=== PATIENT | female | born 1970 | race Caucasian/White ===

== ENCOUNTER → 2018-01-28 07:09 | Outpatient (CLI) | payer OTHER, SELFPAY ==
--- NOTE | 2018-01-28 07:15 | BI_ITS ---
MAMMOGRAPHY - BILATERAL SCREENING REASON FOR EXAM: Female, 47 years old. Routine annual screening examination. PERTINENT HISTORY: Non-contributory. TECHNIQUE: Digital bilateral breast tamar (3D mammographic acquisition) in the CC and MLO projections. 2-D mediolateral oblique (MLO) and craniocaudad (CC) views of both breasts were obtained. CAD: Full Field Digital Mammography with Computer Added Detection was performed. COMPARISON: Comparison is made with prior examination dated February 14, 2015. FINDINGS: Breast Composition: The breasts are heterogeneously dense, which may obscure small masses. There are no dominant masses or suspicious calcifications. No other significant abnormalities are identified. There has been no significant change since the prior study. BI/SCREENING MAMM (CAD), BILAT IMPRESSION: Stable bilateral screening mammogram. Yearly follow-up mammogram recommended. (A) ASSESSMENT CATEGORY: BIRADS Category 1: Negative. A letter regarding these results will be sent to the patient by the facility within 30 days. Approximately 10% of breast cancers are not detected by mammography. A normal mammogram should not delay biopsy of a clinically suspicious abnormality. [id number] Electronically Signed: Noe Maynard MD at 15:51 EDT Tel [phone], Service support ,
== END ==
PROVIDERS: Family Provider Nurse Practitioner Family; PCP Nurse Practitioner Family
DX: Z12.31 Encounter for screening mammogram for malignant neoplasm of breast (principal)
CPT/HCPCS: 77063; 77067

== ENCOUNTER → 2019-04-04 07:57 | Outpatient (CLI) | payer BC, SELFPAY ==
--- NOTE | 2019-04-04 07:59 | BI_ITS ---
MAMMOGRAPHY - BILATERAL SCREENING 3-D TOMOSYNTHESIS REASON FOR EXAM: Female, 48 years old. Bilateral Screening 3-D tomosynthesis PERTINENT HISTORY: No significant family history. TECHNIQUE: 2-D mammograms and 3-D Tomosynthesis of the breast (s) were performed. CAD was performed. COMPARISON: None. FINDINGS: The breast composition is heterogeneously dense that can obscure small breast masses. Scattered benign calcifications are seen. No dense spiculated masses or suspicious microcalcifications are identified. No architectural distortion is identified. There is no skin thickening or retraction. There has been no significant change since the prior study. BI/SCREEN MAMM (CAD) W/KWAME BILAT IMPRESSION: No mammographic signs of malignancy. Routine yearly mammograms recommended. ASSESSMENT CATEGORY: BIRADS Category 2: Benign. A letter regarding these results will be sent to the patient by the facility within 30 days. FOLLOW UP RECOMMENDATION: Yearly follow up mammogram recommended. (A) Approximately 10% of breast cancers are not detected by mammography. A normal mammogram should not delay biopsy of a clinically suspicious abnormality. Electronically Signed: Armin Kimball MD at 9:13 EDT , Service support ,
== END ==
DX: Z12.31 Encounter for screening mammogram for malignant neoplasm of breast (principal)
CPT/HCPCS: 77063; 77067

== ENCOUNTER → 2019-05-19 09:39 | Outpatient (CLI) | payer BC, SELFPAY ==
[2019-05-19 09:35] VITALS: BMI 38.2
[2019-05-19 10:15] LABS: Absolute Lymphocyte Count 2.64 X10^3/uL (0.83-4.51); Absolute Neutrophil Count 4.5 X10^3/uL (2.0-7.7); Basophil# 0.08 X10^3/uL; Eosinophil# 0.35 X10^3/uL; Eosinophils% 4.3 % (0-5); Hematocrit 38.2 % (37-47); Hemoglobin 12.2 g/dL (12.0-15.0); Lymphocyte # 2.64 X10^3/ul (4.0); Lymphocyte % 32.2 % (19-41); Mean Corp Hgb Conc 31.9 g/dL (32-36); Mean Corpuscular Hgb 27.4 pg (27.0-32.0); Mean Corpuscular Volume 85.8 fL (81-99); Mean Platelet Vol. 9.2 fl (6.2-12.0); Monocyte# 0.63 X10^3/uL; Monocyte% 7.7 % (0-10); NRBC Flagged by Analyzer 0 % (0-5); Neutrophil # 4.48 X10^3/uL (2.7-7.7); Neutrophil % 54.6 % (47-70); Platelet Count 357 K/mm3 (150-450); RBC Distribution Width CV 13.4 % (11.6-14.6); RBC Distribution Width SD 42.5 fl (35.1-43.9); Red Blood Count 4.45 M/mm3 (4.2-5.4); White Blood Count 8.2 K/mm3 (4.4-11.0)
[2019-05-19 10:36] LABS: Thyroid Stim Hormone (TSH) 3.25 uIU/mL (0.358-3.74)
== END ==
PROVIDERS: Referring Provider Obstetrics & Gynecology; Visit Provider Obstetrics & Gynecology
DX: N93.9 Abnormal uterine and vaginal bleeding, unspecified (principal)
CPT/HCPCS: 36415; 84443; 85025

== ENCOUNTER → 2019-05-31 08:40 | Outpatient (CLI) | payer BC, SELFPAY ==
[2019-05-19 09:35] VITALS: BMI 38.2
--- NOTE | 2019-05-31 08:42 | US_ITS ---
STUDY: ULTRASOUND OF THE FEMALE PELVIS - COMPLETE REASON FOR EXAM: Female, 49 years old. Dysfunctional uterine bleeding. LMP: April 25, 2019. TECHNIQUE: Transabdominal and Transvaginal TECHNICAL QUALITY: Adequate. COMPARISON: None. FINDINGS: The uterus is anteverted and is in a midline position. The uterus measures 15.5 x 8.1 x 7.8 cm. Normal uterine cervix. There is fluid within the endometrial canal. There is a large heterogenous hypoechoic mass which appears to form the posterior wall of the endometrial canal measuring 7.3 x 7.0 x 5.9 cm. There is internal vascularity This has an appearance of a mass within the endometrial cavity.. The anterior endometrial wall measures 2 mm in thickness, and is hyperechoic.. There is no demonstrated myometrial mass. I.U.D. - The patient does not have an I.U.D. The right ovary is visualized. The right ovary measures 3.1 x 2.6 x 2.2 cm. There is no right ovarian cyst or ovarian mass. There is no visualized right adnexal mass or complex lesion. There is normal arterial and normal venous vascularity. The left ovary is visualized. The left ovary measures 2.8 x 3.3 x 2.5 cm. There is no left ovarian cyst or ovarian mass. There is no visualized left adnexal mass or complex lesion. There is normal arterial and normal venous vascularity. There is no fluid in the cul-de-sac. The urinary bladder has a capacity of 181 mL. There is no gross abnormality. Polycystic ovary disease: No. US/Pelvic (Non ) IMPRESSION: 1. Large heterogenous mass within the endometrial cavity. There is minimal surrounding free fluid. Endometrial polyp or mass is considered. Less likely alternative is a large uterine fibroid deforming the endometrial canal. 2. Normal ovaries. Electronically Signed: Horace Alejo DO at 17:38 EDT Tel [phone], Service support ,
--- NOTE | 2019-05-31 09:15 | US_ITS ---
STUDY: ULTRASOUND OF THE FEMALE PELVIS - COMPLETE REASON FOR EXAM: Female, 49 years old. Dysfunctional uterine bleeding. LMP: April 25, 2019. TECHNIQUE: Transabdominal and Transvaginal TECHNICAL QUALITY: Adequate. COMPARISON: None. FINDINGS: The uterus is anteverted and is in a midline position. The uterus measures 15.5 x 8.1 x 7.8 cm. Normal uterine cervix. There is fluid within the endometrial canal. There is a large heterogenous hypoechoic mass which appears to form the posterior wall of the endometrial canal measuring 7.3 x 7.0 x 5.9 cm. There is internal vascularity This has an appearance of a mass within the endometrial cavity.. The anterior endometrial wall measures 2 mm in thickness, and is hyperechoic.. There is no demonstrated myometrial mass. I.U.D. - The patient does not have an I.U.D. The right ovary is visualized. The right ovary measures 3.1 x 2.6 x 2.2 cm. There is no right ovarian cyst or ovarian mass. There is no visualized right adnexal mass or complex lesion. There is normal arterial and normal venous vascularity. The left ovary is visualized. The left ovary measures 2.8 x 3.3 x 2.5 cm. There is no left ovarian cyst or ovarian mass. There is no visualized left adnexal mass or complex lesion. There is normal arterial and normal venous vascularity. There is no fluid in the cul-de-sac. The urinary bladder has a capacity of 181 mL. There is no gross abnormality. Polycystic ovary disease: No. US/Transvaginal Non- IMPRESSION: 1. Large heterogenous mass within the endometrial cavity. There is minimal surrounding free fluid. Endometrial polyp or mass is considered. Less likely alternative is a large uterine fibroid deforming the endometrial canal. 2. Normal ovaries. Electronically Signed: Horace Alejo DO at 17:38 EDT Tel [phone], Service support ,
== END ==
PROVIDERS: Referring Provider Obstetrics & Gynecology; Visit Provider Obstetrics & Gynecology
DX: N93.9 Abnormal uterine and vaginal bleeding, unspecified (principal)
CPT/HCPCS: 76830; 76856; 93976

== ENCOUNTER → 2019-06-12 17:19 | Outpatient (CLI) | payer BC, SELFPAY ==
--- NOTE | 2019-06-12 | EMB_PTH ---
PATIENT: GEORGIE ADKINS LOC: [facility] U#:[id number] AGE/SX: 55/F ROOM: RE06/12/[address]: PAOLA Delong : 1970 BED: DIS: SPEC #: [id number] RECD: 06/12/19 16:45 STATUS: ALISSON TUNDE #: [id number] ABELARDO: 06/12/19 00:[address]: Katie Espinoza NP DEPT: SURGICAL PATHOLOGY RECD BY: Nikos Irvin ENTERED: 06/13/19 08:51 SP TYPE: ENDOM BX/Beau ALMENDAREZ DR: Jessica [facility] Tissues: Endometrium, NOS Procedures: Surgery Specimen Level IV HEADER OPERATION: Endometrial biopsy PRE-OP DIAGNOSIS: Abnormal uterine bleeding TISSUE SUBMITTED: Endometrial biopsy MICROSCOPIC DIAGNOSIS Endometrial biopsy: Mildly disordered proliferative endometrium. Mild chronic endometritis. SJ:rhiannon 06/14/19 COMMENT Case has been reviewed in consultation with Dr. Contreras who concurs with the above diagnosis. IDC:AM MICROSCOPIC DESCRIPTION Slides are reviewed. GROSS DESCRIPTION Received is one container labeled with the patient's name and not further designated. The specimen consists of multiple irregular and elongated fragments of reddish-lyles soft tissue that in aggregate measure 3 x 2.2 x 0.2 cm. The specimen is totally submitted in one cassette. / AM:rhiannon 06/13/19 TC:5 CPT: 42423
[2019-06-12 16:01] VITALS: BMI 35.5
== END ==
PROVIDERS: Referring Provider Nurse Practitioner Women's Health; Visit Provider Nurse Practitioner Women's Health
DX: N71.1 Chronic inflammatory disease of uterus (principal)
CPT/HCPCS: 88305

== ENCOUNTER 2019-09-26 05:22 | Day surgery (SDC) | payer BC, SELFPAY ==
[2019-06-19 08:38] VITALS: BMI 35.5
[2019-09-18 11:30] VITALS: BMI 35.5
--- NOTE | 2019-09-25 10:29 | EKG12_ITS ---
Test Reason : PREOP Blood Pressure : / mmHG Vent. Rate : 073 BPM Atrial Rate : 073 BPM P-R Int : 146 ms QRS Dur : 074 ms QT Int : 410 ms P-R-T Axes : 050 017 059 degrees QTc Int : 451 ms Normal sinus rhythm Normal ECG Confirmed by ESPERANZA RODRIGUEZ, BREA ([id number]), order editor VALENTINO JACOBSEN ([id number]) on 09/26/2019 10:18:57 AM Referred By: Vicky Barajas Confirmed By:BREA MATA MD
--- NOTE | 2019-09-25 10:47 | PCM.HPOB.BLA ---
- Problem List (1) Abnormal Pap smear of cervix Status: Acute Qualifiers: Comment: colp planned, obtain pap record from [facility] (2) Abnormal uterine bleeding Status: Acute Comment: cbc tsh, us ordered. needs EMB. discussed options of ablation, patient to fu for further discussion based on workup results. (3) Uterine fibroid Status: Acute Qualifiers: Comment: recommend BALTAZAR DUBOSE, possible combo case with lauren juares. History and Physical Date of Admission: 09/26/19 Intake Vital Signs 09/18/19 BMI 35.5 09/18/19 Height 5 ft 7 in 09/18/19 Weight: 229 lb 6 oz 09/18/19 BMI 35.9 09/18/19 BP 133/83 H Intake Visit Reasons: ANAI JUARES COMBO Rubber Stamp Maker Required: No Is patient in pain?: No Allergies Penicillins Adverse Reaction (Mild, Verified 09/18/19 11:29) Rash Medications ferrous sulfate 325 mg (65 mg iron) tablet 325 mg PO QDAY tab 03/25/18 [History Confirmed 09/18/19] venlafaxine 75 mg capsule,extended release 24 hr 75 mg PO QDAY 03/25/18 [History Confirmed 09/18/19] ascorbic acid (vitamin C) 500 mg capsule mg PO cap 05/19/19 [History Confirmed 09/18/19] Post menopausal: No Patient : No : No [facility] Medical History Abnormal Pap smear of cervix (Acute) Anemia (Acute) Anxiety (Acute) Depression (Acute) Vitamin D deficiency (Acute) Surgical History Status post colposcopy (Acute) H/O tubal ligation (Inactive ~1997) Family History Mother Hypertension Kidney disease Sister Diabetes Social History (Updated 09/18/19 @ 11:43 by Vicky Barajas MD) adopted: No household members: family housing: house number of children: 3 current occupational status: employed current occupation: [employer] current occupational exposures/hazards: No pets and animals: No history of recent travel: No Smoking Status: Never smoker second hand exposure: No alcohol intake: current alcohol intake frequency: holidays/special occasions only substance use type: does not use what type of physical activity do you participate in: none seatbelt use: always do you feel safe at home: Yes additional social history: Boyfriend-Jm HPI ER[facility] BSO poss HERNANDO JUARES COMBO: Details: GEORGIE ADKINS is a 49 year old who presents for preop visit for [facility] bso. she is having a combo case with dr juares. Pregancy History 2 Elective abortions Hx Para 2 Spontaneous abortions Hx # Term Pregnancies Ectopic pregnancies Hx # Pregnancies Multiple births # of living children 2 Past Pregnancies Del. Date Name GA/Weeks Outcome Route Bth Weight Infant Gen Labor Lgth Anesthesia Del Locatn Provider FOB Unknown 1993- Vini Unknown 1996- Marilyn Unknown 2008- StepDght- Silvana ROS Const Constitutional: Denies fatigue, fever(s), headache(s), increased appetite, poor appetite, weight gain or weight loss ENT ENT: Denies dizziness or dry mouth Cardio Card: Denies chest pain Resp Resp: Denies cough or dyspnea GI GI: Reports as per HPI; denies abdominal pain, constipation, nausea or vomiting : Reports as per HPI; denies difficulty urinating, painful urination, blood in urine, nipple discharge, pelvic pain, urinary frequency, urinary incontinence, urinary hesitancy, urinary urgency, vaginal discharge, vaginal dryness, vaginal odor, vaginal itching or other Musc Musc: Denies joint pain, back pain or muscle weakness Skin Skin/Breast: Denies nipple discharge Neuro Neuro: Denies dizziness Psych Psych: Denies anxiety or depression Endo Endo: Denies cold intolerance, excessive sweating, heat intolerance or increased thirst Jose/Lymph Hematologic/Lymphatic: Denies easy bleeding, Denies easy bruising, Denies enlarged lymph nodes Exam Const General: cooperative, healthy appearing, comfortable, well developed Nutritional Appearance: average body habitus Orientation: alert HENMT Head: normal to inspection Neck Neck: normal visual inspection, trachea midline Thyroid: thyroid normal Resp Effort & Inspection: normal respiratory effort GI Inspection: normal to inspection, non-distended Palpation: soft, no hepatosplenomegaly, no guarding General: bladder normal to palpation External Female Exam: normal external appearance, normal appearance of the urethra Urethra: normal appearance of the urethra Speculum Exam - Vagina: normal appearance of the vagina, normal vaginal discharge, no lesions Speculum Exam - Cervix: normal appearance of the cervix, nontender Bimanual Exam- Vagina & Uterus: bladder normal to palpation, No cervical tenderness Bimanual Exam- Adnexa, other: normal adnexae, no adnexal masses, pelvic support normal Pelvic Support: normal Skin General: no rashes or lesions noted Assessment & Plan Problems 1. Uterine fibroid D25.9 recommend LAVH BSO, possible combo case with lauren juares HERNANDO. 2. Abnormal uterine bleeding N93.9 cbc tsh, us ordered. needs EMB. discussed options of ablation, patient to fu for further discussion based on workup results. Plan After discussing the patient's diagnosis and treatment plan options, patient wishes to proceed with surgical management. I have discussed with the patient the risks, benefits, and alternatives of the procedure which include but are not limited to risks of anesthesia, bleeding, infection, possible damage to bowel, bladder, or surrounding vasculature which could lead to additional surgery to evaluate any complications. Patient agrees to procedure and wishes to proceed. ACOG/uptodate references given for additional information regarding procedure. Coding Level of Care Code No Charge Diagnoses Uterine fibroid D25.9 Abnormal uterine bleeding N93.9 UPDATE- I have seen the patient and performed any clinically relevant updates to the history and physical exam. Vicky Barajas MD
[2019-09-25 11:16] LABS: Hematocrit 39.3 % (37-47); Hemoglobin 12.6 g/dL (12.0-15.0); Mean Corp Hgb Conc 32.1 g/dL (32-36); Mean Corpuscular Hgb 26.1 pg (27.0-32.0); Mean Corpuscular Volume 81.4 fL (81-99); Mean Platelet Vol. 9.7 fl (6.2-12.0); Platelet Count 438 K/mm3 (150-450); RBC Distribution Width CV 12.7 % (11.6-14.6); RBC Distribution Width SD 37.6 fl (35.1-43.9); Red Blood Count 4.83 M/mm3 (4.2-5.4); White Blood Count 10.4 K/mm3 (4.4-11.0)
[2019-09-25 12:03] LABS: ALB/GLOB Ratio 0.9 RATIO (0.9-2.4); AST(SGOT) 10 U/L (15-37); Alanine Aminotransfer ALT/SGPT 16 U/L (13-56); Albumin, Serum 3.5 g/dL (3.2-5.0); Alkaline Phosphatase 67 U/L (45-117); Anion Gap 4 (5-15); BUN 9 mg/dL (7-18); BUN/Creat Ratio 9.9 RATIO (10-20); Calcium,Total 8.8 mg/dL (8.5-10.1); Chloride 111 mmol/L (98-107); Creatinine, Serum 0.91 mg/dL (0.55-1.02); EST Glomerular Filtration Rate 70 mL/min (>60); Est Glom Filt Rate - Afr Amer 85 mL/min (>60); Globulin 3.7 g/dL (2.2-4.2); Glucose 85 mg/dL (74-106); Potassium 3.6 mmol/L (3.5-5.1); Protein, Total 7.2 g/dL (6.4-8.2); Sodium Level 141 mmol/L (136-145)
[2019-09-26] VITALS (15 sets, daily range): BP systolic 85–135; BP diastolic 55–89; PULSE 61–99; RESP 14–18; TEMP 36.1–37.2; O2SAT 93–100; BMI 35.3; BMI 30.2
[2019-09-26 06:10] LABS: Internal QC Validated? YES +Cl - CLEAR BKGD; Pregnancy, Urine Negative Negative
[2019-09-26 06:16] LABS: Bedside Glucose 113 mg/dL (70-110)
[2019-09-26] MEDS: Gabapentin 600 MG Tablet PO (06:17)
[2019-09-26] MEDS: Celecoxib 200 MG Capsule 400 MG PO (06:17)
[2019-09-26] MEDS: Acetaminophen 500 MG Tablet 1000 MG PO ×4 (06:17→23:44)
[2019-09-26] MEDS: dexAMETHasone 10 MG/ML Vial 8 MG IV (06:34)
[2019-09-26] MEDS: Scopolamine 1mg/72hr Patch 1 PATCH TRANSDERM. (06:34)
[2019-09-26] MEDS: Lactated Ringers 1,000 ML 40 ML IV (06:35)
[2019-09-26] MEDS: Magnesium Sulfate 4gm/100mL 4 GM/100 ML IV.SOLN. IV (06:36)
--- NOTE | 2019-09-26 07:30 | HYST_PTH ---
PATIENT: GEORGIE ADKINS [place] [facility] [id number] AGE/SX: 49/F ROOM: RE09/26/[address]: Dr. Vicky Barajas MD : 1970 BED: DIS: 09/27/2019 SPEC #: [id number] RECD: 09/26/19 10:14 STATUS: ALISSON TUNDE #: [id number] ABELARDO: 09/26/19 07:[address]: Vicky Barajas DEPT: SURGICAL PATHOLOGY RECD BY: Nikos Irvin ENTERED: 09/26/19 11:32 SP TYPE: HYSTERECT OTHR DR: MD Becky Gann, DITCHER OPERATOR-C [facility] Tissues: Uterus, NOS Procedures: Surgery Specimen Level V HEADER OPERATION: ERAS, hysterectomy, LAVH, bilateral salpingo-oophorectomy PRE-OP DIAGNOSIS: Uterine fibroid D25.9, Abnormal uterine bleeding N93.9 TISSUE SUBMITTED: Uterus, cervix, bilateral ovaries and fallopian tubes MICROSCOPIC DIAGNOSIS Uterus, cervix, bilateral fallopian tubes and ovaries, vaginal hysterectomy and bilateral salpingo-oophorectomy: Cervix - chronic cystic cervicitis. Endometrium - secretory endometrium. Myometrium - intramural to submucosal leiomyoma (6 cm in diameter). Bilateral fallopian tubes - no pathologic diagnosis. Right ovary - simple serous cyst (1.2 cm in greatest dimension). - Physiologic follicular cysts. Left ovary - Physiologic follicular cysts and corpus lutea. LUPE:rhiannon 09/27/18 COMMENT Please make reference to previous specimen ([id number]), endometrial biopsy with diagnosis of mildly disordered proliferative endometrium and mild chronic endometritis. MICROSCOPIC DESCRIPTION Slides are reviewed. GROSS DESCRIPTION Received in fixative is one container labeled with the patient's name and designated uterus, cervix, bilateral ovaries and fallopian tubes. The specimen consists of a hysterectomy specimen consisting of uterus with cervix and attached bilateral fallopian tubes and ovaries. The uterus with cervix weighs 362 gm and measures 15 x 10 x 8 cm. The serosal surface is lyles, glistening. The ectocervical mucosa is unremarkable. The external os is oval and patulous in contour. The endocervical canal measures 3.5 cm in length and the endocervical mucosa is unremarkable. Saucer-shaped endometrial cavity measures 6 cm in length and 5 cm in width. The endometrium is lyles, glistening and measures 0.1 cm in thickness. No mass lesion is identified. Sections of the uterine wall reveal an intramural to submucosal nodular mass measuring 6 cm in diameter. Sections of this mass reveals lyles whorled cut surfaces without areas of hemorrhage, necrosis or cystic degeneration. The uninvolved uterine wall measures up to 2 cm in thickness. The right fallopian tube measures 2 cm in length and 0.5 cm in diameter. The fimbrial end is identified. The proximal portion of the fallopian tube appears to be absent consistent with previous tubal ligation. The soft to cystic right ovary measures 3 x 2.5 x 2 cm. Sections reveal multiple cysts filled with clear fluid. The largest cyst measures 1.2 cm in greatest dimension. The left fallopian tube is similar to right and measures 1.5 cm in length and 0.5 cm in diameter. Sections reveal unremarkable cut surfaces. The soft to cystic left ovary measures 3 x 2.5 x 2 cm. Sections reveal multiple cysts filled with clear fluid. The largest cyst measures 0.5 cm in greatest dimension. A corpus luteum is also noted measuring 1 cm in greatest dimension. Hoisting Engineer Pile Driving sections are submitted in 12 cassettes as follows: 1 - anterior cervix, 2 - posterior cervix, 3 & 4 - anterior uterine wall (cassette 4 also contains a portion of nodular mass), 5 & 6 - posterior uterine wall, 7 & 8 - nodular mass, 9 - right fallopian tube, entirely submitted, 10??right ovary, 11 - left fallopian tube, entirely submitted and left ovary. / LUPE:rhiannon 09/26/19 TC:1 CPT: 85063
[2019-09-26] MEDS: Cefazolin 2 GM in 0.9% Normal Saline 100 ML IV (07:44)
--- NOTE | 2019-09-26 07:48 | PCM.OPRPT ---
Problem List (1) Abnormal Pap smear of cervix Status: Acute Qualifiers: Comment: colp planned, obtain pap record from [facility] (2) Abnormal uterine bleeding Status: Acute Comment: cbc tsh, us ordered. needs EMB. discussed options of ablation, patient to fu for further discussion based on workup results. (3) Uterine fibroid Status: Acute Qualifiers: Comment: recommend LAVH BSO, possible combo case with lauren higgins. Report of Operation Date of Procedure: 09/26/19 Pre-Operative Diagnosis: aub fibroids CHELE Post-Operative Diagnosis: same Surgery/Procedure Performed:: lavh bso Description of Surgical Findings:: enlarged uterus champion of sustainable design: Maria Esther Swift champion of sustainable design: Glendy Higgins Type of Anesthesia:: General Special Medications: none Specimen's removed: uterus tubes ovaries Drains: cain Estimated Blood Loss (mL): 100 Fluids Replaced: crystalloid Description of Procedure: Patient received preoperative antibiotics and SCDs were on preoperatively. Patient was taken back to the operating room and placed in the dorsal lithotomy position. General anesthesia was induced and patient was prepped and draped in normal sterile fashion. Uterine manipulator was placed inside the uterus and Cain catheter placed in the bladder. The umbilicus was grasped with towel clamps and an intraumbilical incision was made after injecting with quarter percent Marcaine and a Veress needle entered into the abdomen confirmed to be intra-abdominal with a low opening pressure. Abdomen was insufflated with CO2 gas and the Veress needle removed and the 5 mm trocar was placed under direct visualization without complication. Right and left lower quadrants were transilluminated and injected with quarter percent Marcaine and 5 mm ports placed under direct visualization. Pelvis was well visualized see operative findings for additional information. Bilateral fallopian tubes were identified and transected with the LigaSure device across the mesosalpinx to the level of the utero-ovarian ligament which was also transected with the LigaSure device. The broad ligament was opened up by transecting the round ligament bilaterally and skeletonizing the uterine vessels bilaterally and creating a bladder flap using the LigaSure device. The uterine arteries were transected bilaterally with good visualization of the bladder and the ureters were seen to be inferior lateral to the operative area. Attention was then paid to the vaginal portion of the procedure and the cervix was grasped with Sulaiman clamps and circumferentially injected with dilute vasopressin. A circumferential incision was made and the vaginal mucosa was mobilized off posteriorly and the cul-de-sac entered into sharply and a longneck speculum placed. The anterior cul-de-sac was then identified and entered into sharply. The uterosacral ligaments were clamped cut and suture ligated with 0 Monocryl bilaterally followed by the cardinal ligaments which were clamped cut and suture ligated bilaterally with 0 Monocryl. The uterus serially descended and was removed without difficulty Pelvic sidewall pedicles were checked and noted to have excellent hemostasis with an additional suture on the left side wall. The vaginal mucosa was reapproximated incorporating the posterior peritoneum. This was reapproximated using 0 Vicryl [id number] sutures. Excellent hemostasis was noted. Pressure was taken down and the areas visualized and noted of excellent hemostasis. All ports were removed under direct visualization without complication and the abdomen was desufflated of air. The instruments removed from the abdomen and the vagina vaginal sweep was negative. Port sites on the abdomen were closed with 4-0 Monocryl interrupted sutures and Steri's and windows were applied. dr higgins performed her portion of the procedure vaginally please see her dictation. She was awoken and taken recovery in stable condition. Grafts/Implants Used: sling - Complications none Multi Select Codes - Urinary/Genital Urinary/Genital CPT Codes: 66790 LAVH+BS/O >250gr Uterus
[2019-09-26] MEDS: Bupivacaine 0.25% 30 ML Vial (08:12)
[2019-09-26] MEDS: Vasopressin 20 UNITS/ML Vial (08:35)
--- NOTE | 2019-09-26 09:27 | OP.PCM_ITS ---
Problem List (1) Stress incontinence of urine Status: Acute Report of Operation Date of Procedure: 09/26/19 Pre-Operative Diagnosis: stress urinary incontinence, urethral hypermobility Post-Operative Diagnosis: same Surgery/Procedure Performed:: Altis midurethral sling, cystoscopy Type of Anesthesia:: General Estimated Blood Loss (mL): 25cc Description of Procedure: The patient is a 49-year-old female with stress urinary incontinence and urethral hypermobility along with a fibroid uterus. She desired to proceed with hysterectomy for her uterus, and mid urethral sling insertion for treatment of her incontinence. She underwent urodynamics in the office preoperatively and informed consent was obtained. Patient was taken to the operating room and placed on the operating room table. Anesthesia monitored the head, neck, airway, IV access and vital signs throughout the case. Once anesthesia was appropriately administered, the p atient was prepped and draped in usual sterile fashion. A Tijerina catheter was inserted under sterile conditions. She then underwent a laparoscopic assisted vaginal hysterectomy for which I assisted Dr. Barajas. At the conclusion of this portion of the procedure, I begin to work on the urethra. The mid urethra was identified and injected submucosally with vasopressin. A midline incision in vertical fashion was made approximately 1.5 cm in length. Sharp and blunt dissection was performed on either side of the urethra with care being taken to avoid entry into the urethra. Using the trochars of the sling, the mesh was placed into the obturator complexes bilaterally. It lay flat against the urethra without tension and was positioned using the tensioning suture which was then cut. The midline incision was closed using running interlocking 2-0 Vicryl suture. A cystourethroscopy was then performed revealing bilateral ureteral jets, no injury to the bladder or urethra mucosa and no foreign body. The Tijerina catheter was then replaced, and the patient was awakened and taken to the recovery room in good condition. Grafts/Implants Used: Altis midurethral sling - Complications none - Admit VTE Documentation VTE Present on Admission: Yes VTE Mechan Device Prophylaxis: SCD's VTE Pharm Prophylaxis ordered?: Yes
[2019-09-26] MEDS: Ketorolac 30 MG/ML Syringe IV ×3 (10:18→23:45)
[2019-09-26] MEDS: Docusate Sodium 100 MG Capsule PO ×2 (14:13→21:14)
[2019-09-26] MEDS: Smz/Tmp Ds Tablet 1 TABLET PO ×2 (14:13→17:05)
[2019-09-26] MEDS: Lactated Ringers 1,000 ML 70 ML IV (14:18)
[2019-09-27 02:35] VITALS: BP 109/69; PULSE 83; RESP 14; TEMP 37; O2SAT 95
[2019-09-27] MEDS: Ketorolac 30 MG/ML Syringe IV (05:16)
--- NOTE | 2019-09-27 06:14 | NURSING ---
Tijerina catheter removed at this time per order. Pt tolerated well.
[2019-09-27 06:23] LABS: Hematocrit 32.4 % (37-47); Hemoglobin 10.1 g/dL (12.0-15.0); Mean Corp Hgb Conc 31.2 g/dL (32-36); Mean Corpuscular Hgb 25.9 pg (27.0-32.0); Mean Corpuscular Volume 83.1 fL (81-99); Mean Platelet Vol. 9.2 fl (6.2-12.0); Platelet Count 366 K/mm3 (150-450); RBC Distribution Width CV 12.9 % (11.6-14.6); RBC Distribution Width SD 38.7 fl (35.1-43.9); White Blood Count 12.1 K/mm3 (4.4-11.0)
[2019-09-27 07:36] VITALS: O2SAT 94
--- NOTE | 2019-09-27 07:44 | PCM.PN.OB ---
Patient Problems: Active and Suspected Problems (Last Reviewed 09/18/19 @ 11:28 by Blanca Stevens) Stress incontinence of urine (Acute) Subjective: patient recovering well, denies CP, SOB, N, or V. patient is ambulating, voiding ,tolerating adequate po, and pain is controlled with oral medications. - Physical Exam Vitals/I&O's: Vital Signs Temp Pulse Resp BP Pulse Ox 98.6 F 83 14 109/69 94 09/27/19 02:35 09/27/19 02:35 09/27/19 02:35 09/27/19 02:35 09/27/19 07:36 Oxygen Flow Rate (L/min) 2 Oxygen Delivery Method Room Air Weight: 193 lb Body Mass Index (BMI) 30.2 Intake and Output for Last 24 Hours 09/25/19 09/26/19 09/27/19 23:59 23:59 23:59 Intake Total 2491.02 / 2491.02 1360 / 1360 Output Total 2140 / 2140 650 / 650 Balance 351.02 / 351.02 710 / 710 General: Alert, Oriented x3 Laboratory Results 09/27/19 06:10: WBC 12.1 H, RBC 3.90 L, Hgb 10.1 L, Hct 32.4 L, MCV 83.1, MCH 25.9 L, MCHC 31.2 L, RDW Std Deviation 38.7, RDW Coeff of Tim 12.9, Plt Count 366, MPV 9.2 Current Medications Acetaminophen (Tylenol) 1,000 mg PO Q6 [facility] Last Admin: 09/26/19 23:44 Dose: 1,000 mg Documented by: Docusate Sodium (Colace) 100 mg PO BID [facility] Last Admin: 09/26/19 21:14 Dose: 100 mg Documented by: Enoxaparin Sodium (Lovenox) 40 mg SC DAILY [facility] Lactated Ringer's () 1,000 mls @ 70 mls/hr IV .[id number] [facility] Stop: 09/27/19 10:04 Last Infusion: 09/27/19 04:36 Dose: Infused Documented by: Ketorolac Tromethamine (Toradol) 30 mg IV Q6 [facility] Stop: 09/27/19 18:01 Last Admin: 09/27/19 05:16 Dose: 30 mg Documented by: Magnesium Oxide (Mag-Ox 400) 400 mg PO DAILY PRN PRN PRN Reason: Constipation Nutritional Formula (Lactose Free) (Ensure Enlive) 120 ml PO TIDCM [facility] Ondansetron HCl (Zofran Odt) 4 mg PO Q6H PRN PRN PRN Reason: NAUSEA Oxycodone HCl (Oxyir) 5 - 10 mg PO Q4H PRN PRN PRN Reason: Pain Score 4-10/10 Sodium Chloride () 10 - 40 ml IV UD PRN PRN Reason: SALINE FLUSH Trimethoprim/Sulfamethoxazole (Bactrim Ds) 1 tablet PO BIDCM [facility] Last Admin: 09/26/19 17:05 Dose: 1 tablet Documented by: Medical Necessity - Tobacco Use Smoking Status: Never smoker Tobacco Use: Non-smoker Assessment/Plan All Active Problems (Last Reviewed 09/18/19 @ 11:28 by Blanca Stevens) Stress incontinence of urine (Acute) Uterine fibroid (Acute) Abnormal Pap smear of cervix (Acute) Abnormal uterine bleeding (Acute) patient is s/p LAVH BSO mini sling POD 1 1. routine ERAS protocol postop care- increase ambulation, encourage oral intake and oral control of pain. lovenox and scds for dvt prophylaxis, patient stable for discharge to home.
--- NOTE | 2019-09-27 07:56 | DCINST_ITS ---
Discharge Diet: No Restrictions Discharge Activity: Return to Normal Activity, May Not Drive, May Shower May resume sexual activity in: 6-8 weeks Call your doctor if your incision/area has: Continuous Slow Oozing, Sudden Increased Bleeding, Increased Pain/ Swelling, Increased Redness, Foul Smelling Discharge Call your doctor if you observe: Fever of 101 or Higher, Inability to urinate, Inability to have a bowel movement, Using more than one pad per hour Allergies/Adverse Reactions: Allergies Penicillins Adverse Reaction (Mild, Verified 09/19/19 10:12) Rash Medications to take at Discharge venlafaxine 75 mg capsule,extended release 24 hr 75 mg PO QDAY 03/25/18 Naproxen [Naprosyn] 250 - 500 mg PO Q8H PRN PRN #30 tab 09/26/19 Oxycodone HCl/Acetaminophen [Percocet 5-325] 1 - 2 tab PO Q6H PRN PRN 7 Days #15 tab 09/26/19 The following prescriptions were given: Naproxen [Naprosyn] 250 - 500 mg PO Q8H PRN PRN #30 tab PRN Reason: MILD PAIN Transmission Status: Received by [facility] Oxycodone HCl/Acetaminophen [Percocet 5-325] 1 - 2 tab PO Q6H PRN PRN 7 Days #15 tab PRN Reason: Pain Transmission Status: Received by [facility] Orders to be completed after discharge: Type & Screen Time Frame: 09/19/19, Facility: [facility], Location: Laboratory 12 Lead EKG [[facility]] Time Frame: 09/19/19, Facility: [facility], Location: Cardiovascular Services CBC-Complete Blood Cnt No Diff Time Frame: 09/19/19, Facility: [facility], Location: Laboratory Comprehensive Metabolic Profil Time Frame: 09/19/19, Facility: [facility], Location: Laboratory Primary Care Physician: Jessica Kearney [Primary Care Provider] - Test Results: Test results from this visit will be discussed in further detail at your follow- up appointment, if applicable. Please Follow Up With: Vicky Barajas MD - [phone]
[2019-09-27 09:02] VITALS: BP 118/68; PULSE 81; RESP 16; TEMP 36.7; O2SAT 97
[2019-09-27] MEDS: Docusate Sodium 100 MG Capsule PO (09:29)
[2019-09-27] MEDS: Acetaminophen 500 MG Tablet 1000 MG PO (09:30)
[2019-09-27] MEDS: Enoxaparin 40 MG/0.4 ML Syringe SC (09:30)
== END 2019-09-27 12:08 | disposition home or self-care (01) ==
LOC: SDC 05:23 → AC 05:24 → MS3 12:23
PROVIDERS: Urology; Referring Provider Obstetrics & Gynecology; Visit Provider Obstetrics & Gynecology
PROC: 0UT9FZZ Resection of Uterus, Via Natural or Artificial Opening With Percutaneous Endoscopic Assistance (ICD-10-PCS; CPT 58552; principal; 2019-09-26 07:05)
PROC: 0TJB8ZZ Inspection of Bladder, Via Natural or Artificial Opening Endoscopic (ICD-10-PCS; CPT 57288; 2019-09-26 07:05)
DX: N83.201 Unspecified ovarian cyst, right side (principal); D25.0 Submucous leiomyoma of uterus; N93.9 Abnormal uterine and vaginal bleeding, unspecified; N72 Inflammatory disease of cervix uteri; D25.9 Leiomyoma of uterus, unspecified; N39.3 Stress incontinence (female) (male); N85.2 Hypertrophy of uterus; Z79.1 Long term (current) use of non-steroidal anti-inflammatories (NSAID); Z79.899 Other long term (current) drug therapy; Z88.0 Allergy status to penicillin
CPT/HCPCS: 00860; 57288; 58552; 36415; 80053; 81025; 82962; 85027; 86850; 86900; 86901; 88307; 93005; 99251; J7120; G0463; J2405

== ENCOUNTER 2020-06-27 10:26 | Emergency (ER) | payer BC, SELFPAY ==
[2019-10-25 11:39] VITALS: BMI 30.2
[2020-06-27 10:28] VITALS: BP 147/88; PULSE 91; RESP 16; TEMP 36.6; O2SAT 98; BMI 36.1
--- NOTE | 2020-06-27 10:53 | EKG12_ITS ---
Test Reason : Blood Pressure : / mmHG Vent. Rate : 066 BPM Atrial Rate : 066 BPM P-R Int : 150 ms QRS Dur : 088 ms QT Int : 446 ms P-R-T Axes : 042 022 081 degrees QTc Int : 467 ms Normal sinus rhythm Normal ECG Confirmed by KSAANDRA RODRIGUEZ, JONE ([id number]), rewrite editor ALVERTO POTTER ([id number]) on 07/11/2020 9:30:09 A M Referred By: JULIA Confirmed By:MOISE SLAUGHTER MD
--- NOTE | 2020-06-27 10:54 | ED.DCSUM_ITS ---
- ER Visit Summary Date of Service: 06/27/20 Chief Complaint: Syncopal event History of Present Illness: The patient is a 50 F history of hypertension anxiety. Patient states for last several days she is had some nasal congestion and URI type symptoms. Today she took a shower. Tiff somewhat lightheaded d izziness shower when she got out she felt she might pass out so she sat down on the ground. Said she went out for a brief period of time. She did not fall because she felt it coming on so she lowered herself down. She denies any significant headache, chest pain, shortness of breath. She denies any nausea, vomiting or diarrhea. She denies any fever or chills. She has had a prior syncopal event before in which she was evaluated emergency department and discharged home and not admitted. She has no cardiac history or any history of dysrhythmia. Patient was started on blood pressure medications by the following [facility] clinic she was on lisinopril once daily. She did not like the way it made her feel so she stopped it about 2 weeks ago. Physical Examination: White female no acute distress vital signs stable afebrile. Blood pressure is 147/80. Afebrile. Pulse ox 98% on room air no signs hypoxia. Heart rate 91. H EENT exam unremarkable. Pupils are unreactive light. His motions are intact. No facial droop. Normal speech. No nystagmus. Neck nontender. Lungs clear to auscultation bilateral. Heart regular rhythm no murmur. Abdomen soft nontender normal bowel sounds no peritoneal signs. Patient is moving all 4 extremities. Neurovascular intact. Nontender no deformity. Normal range of motion. Back exam normal. Neurologically she is aw brain alert with no focal motor or sensory deficits. 5 out of 5 doctor of medicine strength bilaterally. Dorsi plantarflexion intact. Fingertip to nose within normal limits bilaterally. No signs of vertigo. Negative Hallpike. NIH score is 0. Face and scalp are atraumatic. Test Results: White count of 7. Hemoglobin 14. No bands. Chemistries normal normal creatinine and gap. EKG normal sinus rhythm rate of 66 no acute signs of [place], ischemia or dysrhythmia. Orthostatic vital signs were normal. No signs of any hypotension. Repeat exam patient is doing well at 12:27 PM. We went over her test results. They are comfortable being discharged home. Emergency Department Course and Treatment: Patient with a syncopal event. Currently has a completely normal exam. Normal neurologic exam. Screening labs, EKG and orthostatic vital signs are being obtained. Treatment Plan: Return if feeling worse or passes out again. Follow-up with primary care physician. Disposition: Discharge Impression: Acute syncopal event of uncertain etiology This note was generated with [employer] dictation software. It may contain incorrect words, spelling, and punctuation that were not noted in review of the chart prior to signing ED Disposition - Plan for ED Patient: Referrals: Becky Low ENTERPRISE SECURITY ARCHITECT, ENTERPRISE SECURITY ARCHITECT-C [Primary Care Provider] -
[2020-06-27 11:17] VITALS: BP 128/90; BP 132/82; BP 142/101; PULSE 71; PULSE 72; PULSE 85
[2020-06-27 11:33] LABS: Absolute Lymphocyte Count 1.46 X10^3/uL (0.83-4.51); Basophil# 0.05 X10^3/uL; Basophil% 0.7 % (0-1); Eosinophil# 0.25 X10^3/uL; Eosinophils% 3.4 % (0-5); Hematocrit 42.9 % (37-47); Hemoglobin 14.1 g/dL (12.0-15.0); Lymphocyte # 1.46 X10^3/ul (4.0); Lymphocyte % 20.1 % (19-41); Mean Corp Hgb Conc 32.9 g/dL (32-36); Mean Corpuscular Hgb 28.7 pg (27.0-32.0); Mean Corpuscular Volume 87.4 fL (81-99); Mean Platelet Vol. 9.4 fl (6.2-12.0); Monocyte# 0.48 X10^3/uL; Monocyte% 6.6 % (0-10); NRBC Flagged by Analyzer 0 % (0-5); Neutrophil # 4.99 X10^3/uL (2.7-7.7); Neutrophil % 68.9 % (47-70); Platelet Count 332 K/mm3 (150-450); RBC Distribution Width CV 12.4 % (11.6-14.6); RBC Distribution Width SD 39.5 fl (35.1-43.9); Red Blood Count 4.91 M/mm3 (4.2-5.4); White Blood Count 7.3 K/mm3 (4.4-11.0)
[2020-06-27 11:46] LABS: Anion Gap 5 (5-15); BUN 11 mg/dL (7-18); BUN/Creat Ratio 12.4 RATIO (10-20); Calcium,Total 9.2 mg/dL (8.5-10.1); Chloride 109 mmol/L (98-107); Creatinine, Serum 0.89 mg/dL (0.55-1.02); EST Glomerular Filtration Rate 72 mL/min (>60); Est Glom Filt Rate - Afr Amer 87 mL/min (>60); Estimated Creatinine Clearance 74.36 ml/min; Glucose 123 mg/dL (74-106); Potassium 3.5 mmol/L (3.5-5.1); Sodium Level 142 mmol/L (136-145)
--- NOTE | 2020-06-27 12:28 | ED.DEP ---
ED Disposition - Plan for ED Patient: Disposition: Home or Assisted Living Instructions: ED Fainting Uncertain Cause Referrals: Becky Low PRECISION OPTICS TECHNICIAN, PRECISION OPTICS TECHNICIAN-C [Primary Care Provider] - 3-5 Days Additional Instructions: Your blood counts, electrolytes, blood pressure and EKG were all normal. If you pass out again or feeling worse to return otherwise follow-up with your primary care provider for further evaluation.
[2020-06-27 12:51] VITALS: BP 140/95; PULSE 75; RESP 15; O2SAT 99
== END 2020-06-27 12:52 | disposition home or self-care (01) ==
PROVIDERS: Emergency Provider Emergency Medicine; PCP Nurse Practitioner Family
DX: R55 Syncope and collapse (principal); I10 Essential (primary) hypertension; F41.9 Anxiety disorder, unspecified; Z79.899 Other long term (current) drug therapy
CPT/HCPCS: 80048; 85025; 93005; 99281; 99285

== ENCOUNTER → 2020-12-25 06:59 | Outpatient (CLI) | payer OTHER, SELFPAY ==
--- NOTE | 2020-12-25 07:01 | BI_ITS ---
MAMMOGRAPHY - BILATERAL SCREENING REASON FOR EXAM: Female, 50 years old. Routine annual screening examination. PERTINENT HISTORY: Non-contributory. TECHNIQUE: Digital bilateral breast kwame (3D mammographic acquisition) in the CC and MLO projections. 2-D mediolateral oblique (MLO) and craniocaudad (CC) views of both breasts were obtained. CAD: Full Field Digital Mammography with Computer Added Detection was performed. COMPARISON: Comparison is made with prior study dated 04/04/2019 and 01/28/2018. FINDINGS: Breast Composition: The breasts are heterogeneously dense, which may obscure small masses. There are no dominant masses or suspicious calcifications. Stable small benign-appearing bilateral axillary lymph nodes. No other significant abnormalities are identified. There has been no significant change since the prior study. BI/SCRN MAMM (CAD)W/KWAME BILAT IMPRESSION: Stable bilateral screening mammogram. Yearly follow-up mammogram recommended. (A) ASSESSMENT CATEGORY: BIRADS Category 2: Benign. A letter regarding these results will be sent to the patient by the facility within 30 days. Approximately 10% of breast cancers are not detected by mammography. A normal mammogram should not delay biopsy of a clinically suspicious abnormality. [id number] Electronically Signed: Noe Maynard MD at 8:47 EDT , Service support ,
[2020-12-25 08:16] LABS: Absolute Lymphocyte Count 1.33 X10^3/uL (0.83-4.51); Absolute Neutrophil Count 6.5 X10^3/uL (2.0-7.7); Basophil# 0.06 X10^3/uL; Basophil% 0.7 % (0-1); Eosinophil# 0.32 X10^3/uL; Eosinophils% 3.6 % (0-5); Hematocrit 43.7 % (37-47); Hemoglobin 14.3 g/dL (12.0-15.0); Lymphocyte # 1.33 X10^3/ul (4.0); Lymphocyte % 15.2 % (19-41); Mean Corp Hgb Conc 32.7 g/dL (32-36); Mean Corpuscular Hgb 29.2 pg (27.0-32.0); Mean Corpuscular Volume 89.2 fL (81-99); Mean Platelet Vol. 9.8 fl (6.2-12.0); Monocyte# 0.53 X10^3/uL; NRBC Flagged by Analyzer 0 % (0-5); Neutrophil % 74.2 % (47-70); Platelet Count 313 K/mm3 (150-450); RBC Distribution Width CV 12.3 % (11.6-14.6); White Blood Count 8.8 K/mm3 (4.4-11.0)
[2020-12-25 08:39] LABS: AST(SGOT) 13 U/L (15-37); Alanine Aminotransfer ALT/SGPT 18 U/L (13-56); Albumin, Serum 3.6 g/dL (3.2-5.0); Alkaline Phosphatase 82 U/L (45-117); Anion Gap 1 (5-15); BUN 13 mg/dL (7-18); BUN/Creat Ratio 16.6 RATIO (10-20); Chloride 108 mmol/L (98-107); Cholesterol 169 mg/dL (200); Creatinine, Serum 0.78 mg/dL (0.55-1.02); EST Glomerular Filtration Rate 83 mL/min (>60); Est Glom Filt Rate - Afr Amer 101 mL/min (>60); Globulin 3.6 g/dL (2.2-4.2); Glucose 92 mg/dL (74-106); High Density Lipoprotein 48 mg/dL; Iron 95 ug/dL (50-170); Iron Binding Capacity,Total 312 ug/dL (250-450); PERCENT IRON SATURATION 30.4 % (15.0-55.0); Potassium 3.7 mmol/L (3.5-5.1); Protein, Total 7.2 g/dL (6.4-8.2); Sodium Level 141 mmol/L (136-145); Triglycerides 132 mg/dL; Very Low Density Lipoprotein 26 mg/dL (5-40)
== END ==
DX: Z12.31 Encounter for screening mammogram for malignant neoplasm of breast (principal); D50.9 Iron deficiency anemia, unspecified
CPT/HCPCS: 36415; 77063; 77067; 80053; 80061; 83540; 83550; 85025

== ENCOUNTER 2021-01-11 22:09 | Emergency (ER) | payer OTHER, SELFPAY ==
[2021-01-11 22:09] VITALS: BP 146/97; PULSE 71; RESP 16; TEMP 36.6; O2SAT 94; BMI 36.1
--- NOTE | 2021-01-11 22:43 | CT_ITS ---
STUDY: CT BRAIN WITH AND WITHOUT CONTRAST REASON FOR EXAM: Female, 50 years old. headache RADIATION DOSAGE (If Supplied By Facility): CTDIvol = ( 44.99 ) mGy, DLP = ( 1580.97 ) mGycm TECHNIQUE: Transaxial CT imaging of the brain was performed pre and post contrast administration. The examination was performed with intravenous administration of IV-50 ML ISOVUE 370. Individualized dose optimization techniques were used for this CT. COMPARISON: None. FINDINGS: Normal soft tissue structures. Normal calvarium. Normal size ventricles and extra-axial spaces for the patient''s age. Normal white matter tracts of the cerebral hemispheres. Normal basal ganglia and thalami. Normal brainstem. Normal cerebellum. There is no intracranial hemorrhage. There are no findings of an acute ischemic infarction. Normal visualized paranasal sinuses. CT/Brain/Head W/WO Contrast IMPRESSION: Normal unenhanced and enhanced CT scan of the brain. Electronically Signed: Dariana Barkley MD at 0:24 EDT , Service support ,
--- NOTE | 2021-01-11 22:47 | EDS_ITS ---
ED.HPI.CORNEJO History of Present Illness Chief Complaint: Headache Informant: patient and spouse/S.O. Onset/Context/Timing Onset: Weeks Context: Gradual Timing: Continuous Quality -Headache: Negative for Similar Prior Headaches Current Severity: Moderate Maximum Severity: Moderate Associated Symptoms/Injury Associated Symptoms: Positive for Nausea; Negative for Fever, Sore Throat and Sinus Pressure Narrative Narrative: 50-year-old female 2 weeks ago started developing a metallic taste that she thought was odd. About a week ago started having dizziness at times room spinning. Saw her primary care physician who put her on nausea medication and Antivert. States that she has had this headache now for 2 weeks. Nothing particular makes it better. She denies any falls or trauma. She is on no blood thinners. No one else at home is having headaches. She does not have a history of headaches. She denies any visual change, weakness of her upper or lower extremities or difficulty walking or talking. Prior similar symptoms: No Recent Illness/Hospitalization: No PFSH PFSH Medical History (Updated 01/12/21 @ 00:[address] Maykel Rosenberg MD) Abnormal Pap smear of cervix Anemia Anxiety Depression Migraines Vitamin D deficiency Home Medications venlafaxine 75 mg capsule,extended release 24 hr 75 mg PO QDAY 03/25/18 [History Last Taken 09/26/19 04:30 75 MG] Allergy/AdvReac Type Severity Reaction Status Date / Time Penicillins AdvReac Mild Rash Verified 01/11/21 22:11 Family History Mother Hypertension Kidney disease Sister Diabetes Surgical History H/O tubal ligation (~1997) History of LAVH Status post colposcopy Social History adopted: No household members: family housing: house number of children: 3 current occupational status: employed current occupation: [employer] current occupational exposures/hazards: No pets and animals: No history of recent travel: No Smoking Status: Never smoker second hand exposure: No alcohol intake: current alcohol intake frequency: holidays/special occasions only substance use type: does not use what type of physical activity do you participate in: none seatbelt use: always do you feel safe at home: Yes additional social history: Boyfriend-Jm ROS ROS ED Review of Systems ROS Unobtainable: Denies due to encephalopathy Constitutional Constitutional ED: Denies fever(s) Eyes Eyes: Denies blurry vision, change in vision or diplopia ENT ENT ED: Denies rhinorrhea or sore throat Cardiovascular Cardiovascular: Denies chest pain or palpitations Respiratory/Chest Respiratory/Chest: Denies cough or dyspnea Gastrointestinal Gastrointestinal: Denies abdominal pain Genitourinary Genitourinary ED: Denies dysuria Musculoskeletal Musculoskeletal: Denies myalgias Integumentary Denies rash Neurologic Neurologic: Reports headache(s); Denies paresthesias or weakness Psychiatric Psychiatric: Denies depression Endocrine Endocrinology: Denies polyuria Hematologic/Lymphatic Hematologic/Lymphatic: Denies easy bruising Allergic/Immunologic Allergic/Immunologic ED: Denies urticaria EXAM Physical Exam Narrative Exam Narrative: Well-appearing middle-aged female no acute distress. Vital signs stable afebrile. HEENT exam unremarkable. Pupils round reactive light. No facial droop. Normal speech. No signs of trauma. Neck nontender no meningismus. No lymphadenopathy. Lungs clear to auscultation bilaterally. Heart regular rhythm no murmur. Abdomen soft nontender. Extremities moving all 4. Neurovascular intact. Neurologic exam normal. NIH is 0. Equal symmetrical marketing strategy lead strength 5-5. Fingertip to nose within normal limits. Dorsi plantar flexion intact. No ataxia. Const Vital Signs: 01/11/21 22:09 Temperature 97.8 F Temperature Source Temporal Pulse Rate 71 Respiratory Rate 16 Blood Pressure 146/97 H Blood Pressure Mean 113 Pulse Ox 94 Oxygen Delivery Method Room Air Positive well nourished and well developed General Appearance ED: well developed HEENT Reports normocephalic and moist mucous membranes atraumatic; Negative for tenderness Eyes PERRL and EOMs intact bilaterally Neck no lymphadenopathy, supple, no meningeal signs and no JVD Resp normal respiratory effort and clear to auscultation bilaterally Cardio regular rate, regular rhythm and no murmurs GI non-tender and non-distended Auscultation: normoactive bowel sounds Palpation: soft Back/Spine no CVA tenderness Extremity normal to inspection, full ROM and normal capillary refill Neuro oriented x3 and CN's II-XII intact bilaterally Sensorium / Orientation: awake, alert and oriented to person Psych mental status grossly normal Skin Lesions: no lesions Rashes: no rashes MDM MDM MDM Narrative Medical decision making narrative: Middle-aged female with 2-week history of a headache. No trauma. Also symptoms of metallic taste, nausea and dizziness. Unremarkable exam but she does require imaging to further evaluate this complaint. She will be treated with IV Toradol, IV fluids, IV Benadryl and Reglan to try to improve the headache. Repeat exam at 12:18 AM patient is doing better after returning from CAT scan. Her exam remains normal. Her neurologic exam remains normal. She is improving after the IV medication. I went over her test results with her her CBC and chemistries were unremarkable. Lab Data Attestation: I reviewed the patient's lab results. Lab results narrative: CBC and chemistry were unremarkable. CAT scan of the brain with and without contrast was read as normal by the radiologist. I did review the studies. Repeat exam at 12:30 AM patient is doing well. We went over all of her test results. She will be discharged home to follow-up with her primary care provider. Labs: Laboratory Results - last 24 hr 01/11/21 01/11/21 23:20 23:20 WBC 10.3 RBC 5.03 Hgb 14.6 Hct 43.9 MCV 87.3 MCH 29.0 MCHC 33.3 RDW Std Deviation 39.8 RDW Coeff of Tim 12.6 Plt Count 336 MPV 9.5 Immature Gran % (Auto) 0.900 Neut % (Auto) 75.6 H Lymph % (Auto) 15.9 L [place] % (Auto) 5.1 Eos % (Auto) 1.9 Baso % (Auto) 0.6 Absolute Neuts (auto) 7.8 H Absolute Lymphs (auto) 1.63 Nucleated RBC % 0 Sodium 141 Potassium 3.5 Chloride 107 Carbon Dioxide 28.0 Anion Gap 6 BUN 17 Creatinine 0.85 Estim Creat Clear Calc 77.86 Est GFR (MDRD) Af Amer 92 Est GFR (MDRD) Non-Af 76 BUN/Creatinine Ratio 20.1 H Glucose 108 H Calcium 9.4 Radiography Diagnostic Testing: Radiology Impression Brain CT 01/11/21 22:43 IMPRESSION: Normal unenhanced and enhanced CT scan of the brain. Electronically Signed: Dariana Barkley MD at 0:24 EDT , Service support , Discharge Plan Triage Chief Complaint: Headache ED Provider: Maykel Rosenberg Dx/Rx/DC Orders Clinical Impression: Headache Instructions: ED Headache Unspecified Prescriptions: No Action venlafaxine [Effexor XR] 75 mg capsule,extended release 24hr 75 mg PO QDAY RF: 0 Primary Care Provider: [facility] Jessica Cordova Referrals: [facility] Jessica Cordova [Primary Care Provider] - 3-5 Days if not improving Activity Restrictions/Additional Instructions: Tylenol and/or Motrin for the headaches. If your symptoms are not improving follow-up with your primary care provider for further evaluation. Disposition Disposition: Home, self care
[2021-01-11] MEDS: Metoclopramide 10 MG/2 ML Vial 5 MG IV (23:13)
[2021-01-11] MEDS: 0.9% Normal Saline 1,000 ML 999 ML IV (23:13)
[2021-01-11] MEDS: DiphenhydrAMINE 50 MG/ML Syringe 25 MG IV (23:15)
[2021-01-11] MEDS: Ketorolac 30 MG/ML Syringe IV (23:16)
[2021-01-11 23:34] LABS: Absolute Lymphocyte Count 1.63 X10^3/uL (0.83-4.51); Absolute Neutrophil Count 7.8 X10^3/uL (2.0-7.7); Basophil# 0.06 X10^3/uL; Basophil% 0.6 % (0-1); Eosinophils% 1.9 % (0-5); Hematocrit 43.9 % (37-47); Hemoglobin 14.6 g/dL (12.0-15.0); Lymphocyte # 1.63 X10^3/ul (0.83-4.51); Lymphocyte % 15.9 % (19-41); Mean Corp Hgb Conc 33.3 g/dL (32-36); Mean Corpuscular Volume 87.3 fL (81-99); Mean Platelet Vol. 9.5 fl (6.2-12.0); Monocyte# 0.52 X10^3/uL; Monocyte% 5.1 % (0-10); NRBC Flagged by Analyzer 0 % (0-5); Neutrophil # 7.77 X10^3/uL (2.7-7.7); Neutrophil % 75.6 % (47-70); Platelet Count 336 K/mm3 (150-450); RBC Distribution Width CV 12.6 % (11.6-14.6); RBC Distribution Width SD 39.8 fl (35.1-43.9); Red Blood Count 5.03 M/mm3 (4.2-5.4); White Blood Count 10.3 K/mm3 (4.4-11.0)
[2021-01-11 23:44] LABS: Anion Gap 6 (5-15); BUN 17 mg/dL (7-18); BUN/Creat Ratio 20.1 RATIO (10-20); Calcium,Total 9.4 mg/dL (8.5-10.1); Chloride 107 mmol/L (98-107); Creatinine, Serum 0.85 mg/dL (0.55-1.02); EST Glomerular Filtration Rate 76 mL/min (>60); Est Glom Filt Rate - Afr Amer 92 mL/min (>60); Estimated Creatinine Clearance 77.86 ml/min; Glucose 108 mg/dL (74-106); Potassium 3.5 mmol/L (3.5-5.1); Sodium Level 141 mmol/L (136-145)
== END 2021-01-12 00:42 | disposition home or self-care (01) ==
PROVIDERS: Emergency Provider Emergency Medicine
DX: R51.9 Headache, unspecified (principal); R42 Dizziness and giddiness; F41.9 Anxiety disorder, unspecified; F32.9 Major depressive disorder, single episode, unspecified
CPT/HCPCS: 70470; 80048; 85025; 96361; 96374; 96375; 99282; J7030; Q9967; A4216

== ENCOUNTER 2021-01-13 15:03 | Emergency (ER) | payer OTHER, SELFPAY ==
[2021-01-13 15:04] VITALS: BP 154/90; PULSE 79; RESP 15; TEMP 36.4; O2SAT 97; BMI 35.2
--- NOTE | 2021-01-13 16:13 | EDS_ITS ---
HPI History of Present Illness Chief Complaint: Nausea/Vomiting Narrative Narrative: 50-year-old female presents with nausea, vomiting, dizziness, headache. She states the symptoms have been ongoing for the past 2 weeks. She was seen in the ED on Wednesday for similar complaints. At that time she had a CT of her head which was unremarkable. She followed up with ENT today. They sent her to the ER for IV fluids and Zofran. She states she continues to have vomiting and is unable to keep anything down. She denies abdominal pain. Denies diarrhea. Denies chest pain or shortness of breath. Denies fever or recent illness. Prior similar symptoms: Yes Recent Illness/Hospitalization: No PFSH PFSH Medical History (Updated 01/13/21 @ 18:[address] Mahogany Hay MD) Abnormal Pap smear of cervix Anemia Anxiety Depression Migraines Vitamin D deficiency Home Medications venlafaxine 75 mg capsule,extended release 24 hr 75 mg PO QDAY 03/25/18 [History Last Taken 09/26/19 04:30 75 MG] metoprolol succinate 50 mg PO DAILY 01/13/21 [History Last Taken Unknown] ondansetron 4 mg PO Q8H PRN PRN #10 tab 01/13/21 [Rx Last Taken Unknown] Allergy/AdvReac Type Severity Reaction Status Date / Time Penicillins AdvReac Mild Rash Verified 01/13/21 15:05 Family History Mother Hypertension Kidney disease Sister Diabetes Surgical History (Updated 01/13/21 @ 15:07 by Mercedez Holder) H/O tubal ligation (~1997) H/O: hysterectomy History of [facility] Status post colposcopy Social History adopted: No household members: family housing: house number of children: 3 current occupational status: employed current occupation: [employer] current occupational exposures/hazards: No pets and animals: No history of recent travel: No Smoking Status: Never smoker second hand exposure: No alcohol intake: current alcohol intake frequency: holidays/special occasions only substance use type: does not use what type of physical activity do you participate in: none seatbelt use: always do you feel safe at home: Yes additional social history: Boyfriend-Jm ROS ROS ED Constitutional Constitutional ED: Denies fever(s) Eyes Eyes: Denies change in vision ENT ENT ED: Denies rhinorrhea or sore throat Cardiovascular Cardiovascular: Denies chest pain or palpitations Respiratory/Chest Respiratory/Chest: Denies cough or dyspnea Gastrointestinal Gastrointestinal: Reports nausea and vomiting; Denies abdominal pain, constipation or diarrhea Genitourinary Genitourinary ED: Denies dysuria Musculoskeletal Musculoskeletal: Denies myalgias Integumentary Denies rash Neurologic Neurologic: Reports headache(s); Denies weakness Psychiatric Psychiatric: Denies suicidal thoughts EXAM Physical Exam Const Vital Signs: 01/13/21 15:04 01/13/21 17:03 01/13/21 17:13 Temperature 97.5 F L Temperature Source Temporal Pulse Rate 79 Pulse Rate [Lying] 75 Pulse Rate [Sitting] 75 Pulse Rate [Standing] 81 Respiratory Rate 15 15 Blood Pressure 154/90 H Blood Pressure [Lying] 138/85 H Blood Pressure [Sitting] 155/86 H Blood Pressure [Standing] 144/97 H Blood Pressure Mean 111 Blood Pressure Mean [Lying] 102 Blood Pressure Mean [Sitting] 109 Blood Pressure Mean [Standing] 112 Pulse Ox 97 98 Oxygen Delivery Method Room Air Room Air Positive well nourished and well developed General Appearance ED: well developed HEENT Reports normocephalic and head/scalp atraumatic Eyes PERRL and EOMs intact bilaterally Neck supple Neck Narrative: No meningismus General: Negative for tenderness Chest Wall inspection of chest normal Resp normal respiratory effort and clear to auscultation bilaterally Cardio regular rate and regular rhythm GI non-tender and non-distended Palpation: soft; Negative for guarding or rebound tenderness present no CVA tenderness Extremity normal to inspection Neuro oriented x3 and CN's II-XII intact bilaterally Sensorium / Orientation: alert Psych mental status grossly normal Skin no rashes or lesions noted MDM MDM MDM Narrative Medical decision making narrative: Patient was given IV fluids, Zofran. Lab Data Attestation: I reviewed the patient's lab results. Labs: Laboratory Results - last 24 hr 01/13/21 01/13/21 01/13/21 16:45 16:45 17:25 WBC 10.6 RBC 5.20 Hgb 15.1 H Hct 45.5 MCV 87.5 MCH 29.0 MCHC 33.2 RDW Std Deviation 39.8 RDW Coeff of Tim 12.4 Plt Count 363 MPV 9.3 Immature Gran % (Auto) 0.400 Neut % (Auto) 85.1 H Lymph % (Auto) 9.5 L Frio % (Auto) 4.2 Eos % (Auto) 0.2 Baso % (Auto) 0.6 Absolute Neuts (auto) 9.0 H Absolute Lymphs (auto) 1.00 Nucleated RBC % 0 Sodium 141 Potassium 3.4 L Chloride 105 Carbon Dioxide 28.0 Anion Gap 8 BUN 14 Creatinine 0.81 Estim Creat Clear Calc 81.70 Est GFR (MDRD) Af Amer 97 Est GFR (MDRD) Non-Af 80 BUN/Creatinine Ratio 17.3 Glucose 101 Calcium 9.8 Total Bilirubin 0.50 AST 9 L ALT 22 Alkaline Phosphatase 94 Troponin I < 0.015 Total Protein 8.5 H Albumin 4.3 Globulin 4.2 Albumin/Globulin Ratio 1.0 Lipase 73 Urine Color Yellow Urine Clarity Clear Urine pH 5.0 Ur Specific [place] 1.025 Urine Protein 30 H Urine Glucose (UA) Normal Urine Ketones 150 A* Urine Occult Blood 25 H Urine Nitrite Negative Urine Bilirubin Negative Urine Urobilinogen Normal Ur Leukocyte Esterase Negative Urine RBC 0-5 SEEN Urine WBC 0 SEEN Ur Squamous Epith Cells 0-5 SEEN Urine Bacteria 0 SEEN Urine Mucus 1+ Microbiology Past 72 Hours 01/13/21 16:50 Nasal Secretion SARS-CoV-2 Antigen (Rapid) - Final Laboratory Results 01/13/21 16:45: WBC 10.6, RBC 5.20, Hgb 15.1 H, Hct 45.5, MCV 87.5, MCH 29.0, MCHC 33.2, RDW Std Deviation 39.8, RDW Coeff of Tim 12.4, Plt Count 363, MPV 9.3, Immature Gran % (Auto) 0.400, Neut % (Auto) 85.1 H, Lymph % (Auto) 9.5 L, Frio % (Auto) 4.2, Eos % (Auto) 0.2, Baso % (Auto) 0.6, Absolute Neuts (auto) 9.0 H, Absolute Lymphs (auto) 1.00, Nucleated RBC % 0 01/13/21 16:45: Sodium 141, Potassium 3.4 L, Chloride 105, Carbon Dioxide 28.0, Anion Gap 8, BUN 14, Creatinine 0.81, Estim Creat Clear Calc 81.70, Est GFR (MDRD) Af Amer 97, Est GFR (MDRD) Non-Af 80, BUN/Creatinine Ratio 17.3, Glucose 101, Calcium 9.8, Total Bilirubin 0.50, AST 9 L, ALT 22, Alkaline Phosphatase 94, Troponin I < 0.015, Total Protein 8.5 H, Albumin 4.3, Globulin 4.2, Albumin/Globulin Ratio 1.0, Lipase 73 01/13/21 17:25: Urine Color Yellow, Urine Clarity Clear, Urine pH 5.0, Ur Specific [place] 1.025, Urine Protein 30 H, Urine Glucose (UA) Normal, Urine Ketones 150 A*, Urine Occult Blood 25 H, Urine Nitrite Negative, Urine Bilirubin Negative, Urine Urobilinogen Normal, Ur Leukocyte Esterase Negative, Urine RBC 0-5 SEEN, Urine WBC 0 SEEN, Ur Squamous Epith Cells 0-5 SEEN, Urine Bacteria 0 SEEN, Urine Mucus 1+ EKG Initial EKG: Attestation: I personally reviewed and interpreted this EKG as follows: Interpretation: Sinus Rhythm and No Acute Injury Pattern Comments: Rate of 80 Treatment and Re-Evaluation Comments:: Patient was given IV fluids and Zofran. Valium was called in to her pharmacy by Dr. Moser earlier today. On reevaluation, she is feeling improved. She is able to tolerate p.o. in the emergency department. She is comfortable with discharge home. She is advised to follow-up with her primary care physician. Advised return to the ED for worsening complaints. Discharge Plan Triage Chief Complaint: Nausea/Vomiting ED Provider: Mahogany Hay Dx/Rx/DC Orders Clinical Impression: Vertigo Instructions: ED Vertigo, Unspecified Prescriptions: New ondansetron [ondansetron] 4 MG tablet 4 mg PO Q8H PRN PRN (Reason: Nausea) Qty: 10 RF: 0 No Action venlafaxine [Effexor XR] 75 mg capsule,extended release 24hr 75 mg PO QDAY RF: 0 metoprolol succinate 50 mg tablet extended release 24 hr 50 mg PO DAILY RF: 0 [facility] - Disposition Disposition: Home, self care
--- NOTE | 2021-01-13 16:22 | EKG12_ITS ---
Test Reason : Blood Pressure : / mmHG Vent. Rate : 080 BPM Atrial Rate : 080 BPM P-R Int : 162 ms QRS Dur : 076 ms QT Int : 410 ms P-R-T Axes : 044 027 058 degrees QTc Int : 472 ms Normal sinus rhythm Normal ECG Confirmed by WILLOW RODRIGUEZ, DESTINEY ([id number]), editor index ALVERTO POTTER ([id number]) on 01/15/2021 9:03:45 AM Referred By: JACQUELINE Confirmed By:DESTINEY DAUGHERTY MD
[2021-01-13] MEDS: Ondansetron 4 MG/2 ML Vial IV (16:53)
[2021-01-13] MEDS: 0.9% Normal Saline 1,000 ML 1000 ML IV (16:53)
[2021-01-13 17:02] LABS: Basophil# 0.06 X10^3/uL; Basophil% 0.6 % (0-1); Eosinophil# 0.02 X10^3/uL; Eosinophils% 0.2 % (0-5); Hematocrit 45.5 % (37-47); Hemoglobin 15.1 g/dL (12.0-15.0); Lymphocyte % 9.5 % (19-41); Mean Corp Hgb Conc 33.2 g/dL (32-36); Mean Corpuscular Volume 87.5 fL (81-99); Mean Platelet Vol. 9.3 fl (6.2-12.0); Monocyte# 0.44 X10^3/uL; Monocyte% 4.2 % (0-10); NRBC Flagged by Analyzer 0 % (0-5); Neutrophil # 9.01 X10^3/uL (2.7-7.7); Neutrophil % 85.1 % (47-70); Platelet Count 363 K/mm3 (150-450); RBC Distribution Width CV 12.4 % (11.6-14.6); RBC Distribution Width SD 39.8 fl (35.1-43.9); White Blood Count 10.6 K/mm3 (4.4-11.0)
[2021-01-13 17:03] VITALS: RESP 15; O2SAT 98
[2021-01-13 17:13] VITALS: BP 138/85; BP 144/97; BP 155/86; PULSE 75; PULSE 81
[2021-01-13 17:22] LABS: AST(SGOT) 9 U/L (15-37); Alanine Aminotransfer ALT/SGPT 22 U/L (13-56); Albumin, Serum 4.3 g/dL (3.2-5.0); Alkaline Phosphatase 94 U/L (45-117); Anion Gap 8 (5-15); BUN 14 mg/dL (7-18); BUN/Creat Ratio 17.3 RATIO (10-20); Calcium,Total 9.8 mg/dL (8.5-10.1); Chloride 105 mmol/L (98-107); Creatinine, Serum 0.81 mg/dL (0.55-1.02); EST Glomerular Filtration Rate 80 mL/min (>60); Est Glom Filt Rate - Afr Amer 97 mL/min (>60); Globulin 4.2 g/dL (2.2-4.2); Glucose 101 mg/dL (74-106); Lipase 73 U/L (73-393); Potassium 3.4 mmol/L (3.5-5.1); Protein, Total 8.5 g/dL (6.4-8.2); Sodium Level 141 mmol/L (136-145)
[2021-01-13 17:31] LABS: Bacteria 0 SEEN /hpf (None Seen); White Blood Cells 0 SEEN /hpf (0-5)
[2021-01-13 17:52] LABS: Color, Urine Yellow (Yellow); Glucose, Dipstick Normal (Normal); Leukocyte Esterase-Dipstick Negative /ul (Negative); Nitrite-Dipstick Negative (Negative); Occult Blood-Urine 25 /ul (Negative); Protein-Dipstick 30 mg/dl (Negative); Specific Gravity, Urine 1.025 (1.002-1.030); Urine Bilirubin Dipstick Negative (Negative); Urine Clarity Clear (Clear); Urine Urobilinogen Normal (Normal)
[2021-01-13 17:55] LABS: Ketone-Dipstick 150 mg/dl (Negative)
[2021-01-13 18:00] LABS: Mucous, Urine 1+ /hpf (<or=2+); Red Blood Cells-Urine 0-5 SEEN /hpf (0-5); Squamous Epithelial Cells - UA 0-5 SEEN /hpf (5-10)
== END 2021-01-13 19:00 | disposition home or self-care (01) ==
PROVIDERS: Emergency Provider Emergency Medicine
DX: R11.2 Nausea with vomiting, unspecified (principal); R42 Dizziness and giddiness; D64.9 Anemia, unspecified; E55.9 Vitamin D deficiency, unspecified; F32.9 Major depressive disorder, single episode, unspecified; F41.9 Anxiety disorder, unspecified; G43.909 Migraine, unspecified, not intractable, without status migrainosus; Z79.899 Other long term (current) drug therapy
CPT/HCPCS: 80053; 81001; 83690; 84484; 85025; 87426; 93005; 96361; 96374; 99284; J7030; A4216; J2405

== ENCOUNTER → 2021-01-27 16:53 | Outpatient (CLI) | payer OTHER, SELFPAY ==
[2021-01-13 15:04] VITALS: BMI 35.2
[2021-01-27 17:41] LABS: Creatinine, Serum 0.79 mg/dL (0.55-1.02); EST Glomerular Filtration Rate 82 mL/min (>60); Est Glom Filt Rate - Afr Amer 99 mL/min (>60); T4 Free Direct 0.75 ng/dL (0.76-1.46); Thyroid Stim Hormone (TSH) 2.58 uIU/mL (0.358-3.74)
[2021-01-30 16:54] LABS: Acetylcholine Receptor Binding < 0.03 nmol/L (0.00-0.24)
== END ==
PROVIDERS: Referring Provider Ophthalmology; Visit Provider Ophthalmology
DX: H49.23 Sixth [abducent] nerve palsy, bilateral (principal); R51.9 Headache, unspecified
CPT/HCPCS: 36415; 82565; 84238; 84439; 84443

== ENCOUNTER → 2021-01-31 17:37 | Outpatient (CLI) | payer OTHER, SELFPAY ==
[2021-01-13 15:04] VITALS: BMI 35.2
--- NOTE | 2021-01-31 17:53 | MRI_ITS ---
HISTORY: 6TH NERVE PALSY EXAMINATION: MR Brain WO/W Contrast TECHNIQUE: Multiplanar and multisequence MR images of the brain were obtained with and without IV gadolinium. IV Contrast dosage and agent: 20cc dotarem COMPARISON: None FINDINGS: BRAIN PARENCHYMA: No MRI evidence of hemorrhage. No evidence of acute infarct. No intracranial mass or mass effect. No abnormal enhancement. Scattered, nonspecific small high T2 signal foci in the periventricular white matter. There is preservation of the emdond/white matter interface. Normal sella turcica, pituitary gland, infundibular stalk, optic chiasm and hypothalamus. The internal auditory canals are patent. Posterior fossa structures are unremarkable. CSF SPACES: Appropriate for age. No hydrocephalus. Basal cisterns are patent. VASCULAR SYSTEM: Normal flow voids in the major intracranial circulation. CALVARIUM, SKULL BASE, PARANASAL SINUSES AND MASTOID AIR CELLS: Clear. No discrete lytic or blastic abnormalities. ORBITS: Both globes, extraocular muscles, optic nerves and retrobulbar fat appear unremarkable. MRI/Brain W/WO Contrast IMPRESSION: No acute intracranial findings. No mass lesion or abnormal focal enhancement. at 2147 Reported and signed by: Morgan Dial MD Electronically Signed: Morgan Dial MD at 21:46 EDT Tel , Service support ,
== END ==
PROVIDERS: Referring Provider Ophthalmology; Visit Provider Ophthalmology
DX: H49.23 Sixth [abducent] nerve palsy, bilateral (principal); R51.9 Headache, unspecified
CPT/HCPCS: 70553; A9575

== ENCOUNTER → 2021-03-04 15:55 | Outpatient (CLI) | payer OTHER, SELFPAY ==
[2021-03-05 09:13] LABS: PTHIN 52.1 pg/mL (18.4-80.1)
[2021-03-06 14:16] LABS: Thyroid Peroxidase AB 267 IU/mL (0-34)
== END ==
PROVIDERS: PCP Nurse Practitioner Adult Health; Referring Provider Nurse Practitioner Adult Health; Visit Provider Nurse Practitioner Adult Health
DX: R43.2 Parageusia (principal)
CPT/HCPCS: 36415; 83655; 83970; 86376

== ENCOUNTER → 2021-03-14 15:49 | Outpatient (CLI) | payer OTHER, SELFPAY ==
[2021-03-14 17:37] LABS: Hematocrit 39.4 % (37-47); Hemoglobin 12.8 g/dL (12.0-15.0); Mean Corp Hgb Conc 32.5 g/dL (32-36); Mean Corpuscular Hgb 28.4 pg (27.0-32.0); Mean Corpuscular Volume 87.6 fL (81-99); Mean Platelet Vol. 10.4 fl (6.2-12.0); Platelet Count 303 K/mm3 (150-450); RBC Distribution Width CV 12.4 % (11.6-14.6); RBC Distribution Width SD 39.8 fl (35.1-43.9); White Blood Count 8.1 K/mm3 (4.4-11.0)
[2021-03-14 17:47] LABS: ALB/GLOB Ratio 1.1 RATIO (0.9-2.4); AST(SGOT) 16 U/L (15-37); Alanine Aminotransfer ALT/SGPT 21 U/L (13-56); Albumin, Serum 3.6 g/dL (3.2-5.0); Alkaline Phosphatase 78 U/L (45-117); Anion Gap 9 (5-15); BUN 20 mg/dL (7-18); BUN/Creat Ratio 23.9 RATIO (10-20); Chloride 107 mmol/L (98-107); Creatinine, Serum 0.84 mg/dL (0.55-1.02); EST Glomerular Filtration Rate 77 mL/min (>60); Est Glom Filt Rate - Afr Amer 93 mL/min (>60); Globulin 3.4 g/dL (2.2-4.2); Glucose 84 mg/dL (74-106); Potassium 3.7 mmol/L (3.5-5.1); Sodium Level 140 mmol/L (136-145)
[2021-03-21 20:08] LABS: HEPATITIS B SURFACE AG Negative (Negative); Hepatitis A AB, Total Negative (Negative); Hepatitis A IgM Antibody Negative (Negative); Hepatitis B Core AB IgM Negative (Negative); Hepatitis B Core Ab Total Negative (Negative); Hepatitis C Ab <0.1 s/co ratio (0.0-0.9); Immunoglobulin A 244 mg/dL (87-352); Immunoglobulin G 895 mg/dL (586-1602); Immunoglobulin M 172 mg/dL (26-217); QNTFERON TB Mitogen Value > 10.00 IU/mL (.); QNTFERON TB Nil Value 0 IU/mL (.); QNTFERON TB1+ Ag Value 0 IU/mL (.); QNTFERON TB2+ Ag Value 0 IU/mL (.)
[2021-03-21 20:34] LABS: Hep B Surface Antibodies Non Reactive (.); Immunoglobulin E 16 IU/mL (6-495); QNTIFERON TB Positive Criteria Negative (Negative)
== END ==
PROVIDERS: Visit Provider Psychiatry & Neurology Neurology
DX: H81.10 Benign paroxysmal vertigo, unspecified ear (principal); G35 Multiple sclerosis
CPT/HCPCS: 36415; 80053; 82784; 82785; 85027; 86480; 86704; 86705; 86706; 86708; 86709; 86803; 87340

== ENCOUNTER → 2022-05-04 | Outpatient (CLI) | payer BC, SELFPAY ==
--- NOTE | 2022-05-04 07:11 | BI_ITS ---
MAMMOGRAPHY - BILATERAL SCREENING REASON FOR EXAM: Female, 52 years old. Routine annual screening examination. PERTINENT HISTORY: Non-contributory. TECHNIQUE: Digital bilateral breast kwame (3D mammographic acquisition) in the CC and MLO projections. 2-D mediolateral oblique (MLO) and craniocaudad (CC) views of both breasts were obtained. CAD: Full Field Digital Mammography with Computer Added Detection was performed. COMPARISON: Comparison is made with prior study dated 12/25/2020 and 04/04/2019. FINDINGS: Breast Composition: The breasts are heterogeneously dense, which may obscure small masses. There are no dominant masses or suspicious calcifications. Stable small benign-appearing bilateral axillary lymph nodes. No other significant abnormalities are identified. There has been no significant change since the prior study. BI/SCRN MAMM (CAD)W/KWAME BILAT IMPRESSION: Stable bilateral screening mammogram. Yearly follow-up mammogram recommended. (A) ASSESSMENT CATEGORY: BIRADS Category 2: Benign. A letter regarding these results will be sent to the patient by the facility within 30 days. Approximately 10% of breast cancers are not detected by mammography. A normal mammogram should not delay biopsy of a clinically suspicious abnormality. [id number] Electronically Signed: Noe Maynard MD at 8:38 EDT ,
--- NOTE | 2022-05-04 07:59 | RAD_ITS ---
STUDY: X-RAY - LEFT FOOT CLINICAL: Pain at the plantar aspect of the distal metatarsal area. TECHNIQUE: 2 view(s) of the foot. COMPARISON: None. FINDINGS: There are posterior and plantar calcaneal enthesophytes. Otherwise, unremarkable talus, calcaneus, and tarsal bones. Normal visualized subtalar, talonavicular, calcaneocuboid, tarsal and tarsometatarsal articulations. Normal metatarsi. Normal metatarsophalangeal joint of the great toe. Normal tibial and fibular sesamoid bones. Normal interphalangeal joint of the great toe. Normal phalanges of the great toe. Normal second through fifth metatarsophalangeal joints. There is mild flexion deformity of the second distal interphalangeal joint. Otherwise, unremarkable interphalangeal joints and phalanges of the lesser toes. The soft tissue structures are unremarkable. RAD/Foot 2 Views IMPRESSION: Calcaneal enthesopathy. Mild flexion deformity of the second distal interphalangeal joint. Electronically Signed: Ck Portillo MD at 8:41 EDT ,
[2022-05-04 08:04] LABS: Absolute Lymphocyte Count 1.57 X10^3/uL (0.83-4.51); Absolute Neutrophil Count 4.7 X10^3/uL (2.0-7.7); Basophil# 0.08 X10^3/uL; Basophil% 1.1 % (0-1); Eosinophil# 0.33 X10^3/uL; Eosinophils% 4.5 % (0-5); Hematocrit 42.4 % (37-47); Hemoglobin 14.6 g/dL (12.0-15.0); Lymphocyte # 1.57 X10^3/ul (0.83-4.51); Lymphocyte % 21.5 % (19-41); Mean Corp Hgb Conc 34.4 g/dL (32-36); Mean Corpuscular Hgb 29.9 pg (27.0-32.0); Mean Corpuscular Volume 86.9 fL (81-99); Mean Platelet Vol. 9.5 fl (6.2-12.0); Monocyte# 0.59 X10^3/uL; Monocyte% 8.1 % (0-10); NRBC Flagged by Analyzer 0 % (0-5); Neutrophil # 4.71 X10^3/uL (2.7-7.7); Neutrophil % 64.7 % (47-70); Platelet Count 334 K/mm3 (150-450); RBC Distribution Width CV 12.5 % (11.6-14.6); RBC Distribution Width SD 39.7 fl (35.1-43.9); Red Blood Count 4.88 M/mm3 (4.2-5.4); White Blood Count 7.3 K/mm3 (4.4-11.0)
[2022-05-04 08:51] LABS: ALB/GLOB Ratio 0.9 RATIO (0.9-2.4); AST(SGOT) 15 U/L (15-37); Alanine Aminotransfer ALT/SGPT 22 U/L (13-56); Albumin, Serum 3.5 g/dL (3.2-5.0); Alkaline Phosphatase 80 U/L (45-117); Anion Gap 6 (5-15); BUN 17 mg/dL (7-18); BUN/Creat Ratio 18.7 RATIO (10-20); Calcium,Total 8.6 mg/dL (8.5-10.1); Chloride 106 mmol/L (98-107); Cholesterol 180 mg/dL (200); Creatinine, Serum 0.91 mg/dL (0.55-1.02); EST Glomerular Filtration Rate 69 mL/min (>60); Est Glom Filt Rate - Afr Amer 84 mL/min (>60); Globulin 3.7 g/dL (2.2-4.2); Glucose 97 mg/dL (74-106); High Density Lipoprotein 49 mg/dL; Potassium 3.6 mmol/L (3.5-5.1); Protein, Total 7.2 g/dL (6.4-8.2); Sodium Level 140 mmol/L (136-145); Thyroid Stim Hormone (TSH) 3.43 uIU/mL (0.358-3.74); Triglycerides 93 mg/dL; Very Low Density Lipoprotein 19 mg/dL (5-40)
== END | disposition home or self-care (01) ==
DX: Z12.31 Encounter for screening mammogram for malignant neoplasm of breast (principal); M79.672 Pain in left foot; I10 Essential (primary) hypertension
CPT/HCPCS: 36415; 73620; 77063; 77067; 80053; 80061; 84443; 85025

== ENCOUNTER → 2023-06-18 | Outpatient (CLI) | payer BC, SELFPAY ==
--- NOTE | 2023-06-18 07:38 | BI_ITS ---
MAMMOGRAPHY - BILATERAL SCREENING REASON FOR EXAM: Female, 53 years old. Routine annual screening examination. PERTINENT HISTORY: Non-contributory. TECHNIQUE: Digital bilateral breast kwame (3D mammographic acquisition) in the CC and MLO projections. 2-D mediolateral oblique (MLO) and craniocaudad (CC) views of both breasts were obtained. CAD: Full Field Digital Mammography with Computer Added Detection was performed. COMPARISON: Comparison is made with prior study May 04, 2022 and December 25, 2020. FINDINGS: Breast Composition: There are scattered areas of fibroglandular density. There are no dominant masses or suspicious calcifications. No other significant abnormalities are identified. There has been no significant change since the prior study. BI/SCRN MAMM (CAD)W/KWAME BILAT IMPRESSION: Stable bilateral screening mammogram. Yearly follow-up mammogram recommended. (A) ASSESSMENT CATEGORY: BIRADS Category 1: Negative. A letter regarding these results will be sent to the patient by the facility within 30 days. Approximately 10% of breast cancers are not detected by mammography. A normal mammogram should not delay biopsy of a clinically suspicious abnormality. [id number] Electronically Signed: Noe Maynard MD at 9:33 EDT ,
== END | disposition home or self-care (01) ==
PROVIDERS: Referring Provider Nurse Practitioner Adult Health; Visit Provider Nurse Practitioner Adult Health
DX: Z12.31 Encounter for screening mammogram for malignant neoplasm of breast (principal)
CPT/HCPCS: 77063; 77067

== ENCOUNTER → 2023-10-02 | Outpatient (CLI) | payer BC, SELFPAY ==
--- OUTSIDE RECORDS SUMMARY | 2023-10-02 11:02 | XMS RPT_ITS | CCD ---
Author Name Unknown Address [address] [place] [address] Organization [facility] Care Team Providers Care Teacher Associate Name Role Phone Becky Low Primary Care Provider [phone] Unknown, Unknown Unavailable Unavailable Unavailable Unavailable Ms. Mani Ponce Attending Unav lesley Ponce, Ms. Mani Victor Referring Unav ailable UNKNOWN, UNKNOWN Primary Care Unavailable Ms. Mani Ponce Attending Unav ailable Fanta, Dr. Oglesby Referring Unavailabl e UNKNOWN, UNKNOWN Primary Care [place] [id number], Number Primary Care Provide r Unavailable MANI PONCE Attending Unavailable Allergies Allergy Classification Reported Allergen(s) Allergy Type Date of Onset Reaction(s) Facility (2 sources) Penicillins; Translations: [PENICILLINS] Propensity to adverse reactions to drug 7 [facility] (15 sources) Penicillins; Translations: [Penicillins] Allergy to drug (finding) [facility] [address] Work Phone: (1 source) Penicillins Drug Intolerance 7 Unknown [facility] (1 source) ALLERGIES NOT ON FILE; Translations: [ALLERGIES NOT ON FILE] Propensity to adverse reactions (disorder) [facility] Repository Medications Current Medications Medication Drug Class(es) Dates Sig (Normalized) Sig (Original) 0.4 ml ofatumumab 50 mg/ml pen injector (15 sources) [id number] Cytolytic Antibody ofatumumab (Kesimpta Pen) 20 mg/0.4 mL injection INJECT 1 PEN (20 MG) SC ONCE ON WEEKS 0, 1, AND 2. NO INJECTION WEEK 3. THEN INJECT 1 PEN (20MG) SC ONCE EVERY 4 WEEKS STARTING ON WEEK 4 0 Active Completed/Discontinued Medications Medication Drug Class(es) Dates Sig (Normalized) Sig (Original) cyclobenzaprine hydrochloride 10 mg oral tablet (2 sources) Muscle Relaxant Start: 08-05-2019 End: 07-19-2023 take 1 tablet by mouth three times daily as needed for muscle spasms cyclobenzaprine (Flexeril) 10 mg tablet Take 1 tablet (10 mg) by mouth 3 times a day as needed for muscle spasms. 0 08/05/2019 07/19/2023 Discontinued (Therapy completed) ferrous sulfate 325 mg oral tablet (2 sources) End: 07-19-2023 take 1 tablet by mouth three times daily at mealtime ferrous sulfate 325 (65 Fe) MG tablet Take 1 tablet (325 mg) by mouth 3 times a day with meals. 0 07/19/2023 Discontinued (Therapy completed) meclizine hydrochloride 25 mg oral tablet (2 sources) Antiemetic Start: 08-05-2019 End: 07-19-2023 take 1 tablet by mouth three times daily as needed meclizine (Antivert) 25 mg tablet Take 1 tablet (25 mg) by mouth 3 times a day as needed. 0 08/05/2019 07/19/2023 Discontinued (Therapy completed) 24 hr metoprolol succinate 50 mg extended release oral tablet (16 sources) beta-Adrenergic Kael Start: 05-16-2021 take 1 tablet by mouth every twenty-four hours Metoprolol Succinate ER 50 MG Oral Tablet Extended Release 24 Hour Quantity: 90 Refills: 0 Ordered: 05-Jul-2021 DO Start : 16-May-2021 Active Problems Active Problems Problem Classification Problem Date Documented Da te Episodic/Chronic Essential hypertension (16 sources) Hypertensive disorder; Translations: [Unspecified essential hypertension] Onset: 07-18-2023 07-18-2023 Chronic Mood disorders (16 sources) Depressive disorder; Translations: [Depressive disorder, not elsewhere classified] Onset: 07-18-2023 07-18-2023 Chronic Multiple sclerosis (20 sources) Multiple sclerosis; Translations: [Multiple sclerosis] Onset: 01-12-2023 Chronic Past or Other Problems Problem Classification Problem Date Documented Da te Episodic/Chronic Other screening for suspected conditions (not mental disorders or infectious disease) (1 source) Abnormal findings on diagnostic imaging of skull and head, not elsewhere classified; Translations: [Abnormal findings on dx imaging of skull and head, NEC] Onset: 03-23-2023 Episodic Sprains and strains (1 source) Strain of neck muscle; Translations: [Strain of neck muscle, initial encounter] Episodic Results Test Name Value Interpretation Reference Range Facil ity Vital Signs Date Time Vital Sign Value Performing Clinician Facility 07-19-2023 14:40-0500 Body mass index (BMI) [Ratio] 37.43 kg/m2 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 [employer] Work Phone: [facility] 07-19-2023 14:40-0500 Body weight 108.41 kg 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 [employer] Work Phone: [facility] 07-19-2023 14:40-0500 Diastolic blood pressure 77 mm[Hg] 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 [employer]UNDRY Work Phone: [facility] 07-19-2023 14:40-0500 Heart rate 67 /min 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 [employer]DR[employer] Work Phone: [facility] 07-19-2023 14:40-0500 Respiratory rate 18 /min 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 [employer] Work Phone: [facility] 07-19-2023 14:40-0500 Systolic blood pressure 120 mm[Hg] 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 [employer]UNDRY Work Phone: [facility] 01-12-2023 14:05-0400 Body height 170.18 cm Unknown Unknown BW-Hfltigrui-ZFN [facility] [place] [address] Work Phone: 01-12-2023 14:05-0400 Body mass index (BMI) [Ratio] 36.96 kg/m2 Unknown Unknown [facility] [place] [address] Work Phone: 01-12-2023 14:05-0400 Body surface area Derived from formula 2.17 m2 [facility] 01-12-2023 14:05-0400 Body weight 107.05 kg Unknown Unknown FH-Ewccbztlc-DMA [facility] [place] [address] Work Phone: 01-12-2023 14:05-0400 Diastolic blood pressure 80 mm[Hg] Unknown Unknown RV-Tvjwgmnot-YDWGN [place] [facility] Work Phone: 01-12-2023 14:05-0400 Heart rate 69 /min Unknown Unknown MM-Akouhxzjp-DOA [facility] [place] [facility] Work Phone: 01-12-2023 14:05-0400 Respiratory rate 18 /min Unknown Unknown AQ-Enyqyfovu-VD [facility] Work Phone: 01-12-2023 14:05-0400 Systolic blood pressure 129 mm[Hg] Unknown Unknown [facility] Work Phone: 01-12-2023 14:05-0400 1 1 Unknown Unknown JV-Arfqpueql-DPY [facility] [place] [facility] Work Phone: Encounters Encounter Date Encounter Type Care Provider Facility Start: 07-19-2023 End: 07-20-2023 ambulatory [facility] Start: 07-19-2023 End: 07-19-2023 ambulatory MANI [facility] Start: 07-19-2023 End: 07-19-2023 Office outpatient visit 40 minutes 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 LAUNDRY Work Phone: [facility] Procedures Date Procedure Procedure Detail Performing Clinician Start: 07-19-2023 CBC W Auto Different ial panel - Blood MANI PONCE Start: 07-19-2023 Hepatic function 200 0 panel - Serum or Plasma MANI PONCE Start: 12-15-2022 Microscopic observat ion [Identifier] in Cervix by Cyto stain 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 [employer] Work Phone: Start: 08-05-2019 Radiography of cervi michelle spine Cassandra Ventura Work Phone: Plan of Treatment Date Care Activity Detail Author Start: 12-15-2025 Screening for malignant neoplasm of cervix [facility] Start: 01-17-2024 End: 01-17-2024 Patient encounter procedure 01/17/2024 2:45 PM EDT Office Visit [facility] [address] [place] [id number] Mani Ponce, SLITTER 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 HELPER-SUPERVISOR LAUNDRY [address] [place] [address] [facility] Start: 07-22-2023 FUV, Provider: Mani Ponce, Status: Pen, Time: 2:30 PM FUV, Provider: Mani Ponce, Status: Pen, Time: 2:30 PM GT-Fwjxgkjjh-WNNZZ [place] [facility] Work Phone: Start: 07-19-2023 End: 07-19-2024 CBC W Auto Differential panel - Blood CBC and Auto Differential Lab Routine Multiple sclerosis (CMS/HCC) Expected: 07/19/2023 (Approximate), Expires: 07/19/2024 [facility] Service Area Work Phone: Payers Date Payer Category Payer Unknown 2021 Unknown [id number] 2019 Unknown [employer] O PPO POS xxxxxxxxxxxx 2019-Present xxxxxxxxxxxx [id number] 1971 Unknown [id number] 1971 Unknown [id number] 1971 Unknown [id number] 5 1971 Unknown [id number] 1971 Unknown [id number] Social History Date Type Detail Facility Start: 08-05-2019 End: 07-19-2023 Tobacco smoking status NHIS Never smoker [facility] Start: 08-05-2019 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 Current non-smoker Current non-smoker [facility] [address] Work Phone: Start: 07-19-2023 Tobacco use and exposure Smokeless tobacco non-user [facility] Work Phone: Gender identity Not on file [facility] ospitals [facility] Work Phone: Start: 07-09-2023 End: 07-19-2023 Exposure to SARS-CoV-2 (event) Not sure [facility] History of Present illness Narrative 07-19-2023 ARY Schofield - 07/19/2023 2:45 PM EST Note Date & Type Note Facility 07-19-2023 History of Present illness Narrative Patient name: Georgie pacheco Diagnosis if known: RRMS Date of onset: 11/2020 Date of diagnosis: 08/2021 disease course at onset: RR disease course now: RR Current DMT: IVMP Previous DMTs: Kesimpta Last MRI brain: 03/2023- stable Last MRI cervical: 09/2021- C3-4 lesion. Last MRI thoracic: None Last OCT: CSF: None Subjective Georgie Ramos is a 53 y.o. female here for a follow up of er MS, she takes Kesimpta and tolerating well. She reports having headaches but not frequently, she also reports zaps of electricity in her neck when she rotates it and also in different areas of her brain that comes and goes . Last MRI of the brain 03/2023 was stable. HPI Objective Neurological Exam Mental Status Alert. Oriented to person, place, time and situation. Oriented to person, place, and time. Recent and remote memory are intact. Speech is normal. Language is fluent with no aphasia. Attention and concentration are normal. Cranial Nerves CN II: Visual acuity is normal. CN III, IV, : Extraocular movements intact bilaterally. Normal lids and orbits bilaterally. Pupils equal round and reactive to light bilaterally. Motor Normal muscle bulk throughout. Normal muscle tone. Strength is 5/5 throughout all four extremities. 9 hole peg test: Right hand 23.4 sec. Left hand 26.7 sec.. Sensory Sensation is intact to light touch, pinprick, vibration and proprioception in all four extremities. Reflexes Deep tendon reflexes are 2+ and symmetric in all four extremities. Right palmar grasp present. Left palmar grasp present. Coordination Fpzobu-lw-mtvx, rapid alternating movements and xaft-pk-bmdn normal bilaterally without dysmetria. Gait Timed get up and go test: 6 seconds. Physical Exam Constitutional: Appearance: Normal appearance. HENT: Head: Normocephalic. Nose: Nose normal. Mouth/Throat: Mouth: Mucous membranes are moist. Eyes: General: Lids are normal. Extraocular Movements: Extraocular movements intact. Pupils: Pupils are equal, round, and reactive to light. Cardiovascular: Rate and Rhythm: Normal rate. Pulses: Normal pulses. Pulmonary: Effort: Pulmonary effort is normal. Abdominal: General: Abdomen is flat. Musculoskeletal: General: Normal range of motion. Cervical back: Full passive range of motion without pain and normal range of motion. Skin: General: Skin is warm and dry. Neurological: Mental Status: She is alert and oriented to person, place, and time. Motor: Motor strength is normal. Coordination: Coordination is intact. Deep Tendon Reflexes: Reflexes are normal and symmetric. Psychiatric: Attention and Perception: Attention normal. Mood and Affect: Mood normal. Speech: Speech normal. Behavior: Behavior normal. Behavior is cooperative. Thought Content: Thought content normal. Cognition and Memory: Cognition normal. Judgment: Judgment normal. Provider impression: Georgie Ramos is a 53 y.o. female here for a follow up of er MS, she takes Kesimpta and tolerating well. Last MRI of the brain 03/2023 was stable. Her neurological exam is stable. We discussed the importance of living healthy life style with diet and exercise and the importance of V-D in patient's with MS. The total face to face appointment was 45 minutes and more than 50% of the visit was spent counseling and coordination of care. I personally reviewed laboratory, radiographic, and medical studies which were pertinent for today's visit. Plan - Continue Kesimpta. - MRI March 2024. - Labs today. - Follow up 6 mo. documented in this encounter [facility] Work Phone: History of Present illness Narrative 12-01-2022 Note Date & Type Note Facility 12-01-2022 History of Present illness Narrative [facility] NEUROIMMUNOLOGY EVALUATIONReferral source: Dr. Lino NEUROLOGIC DIAGNOSIS: RMSDISEASE SUMMARY/DIAGNOSTICS:Onset: 12/01Diagnosis of MS: 09/02Disease course at onset: RCurrent disease course: RPrevious disease therapies: not sure, maybe one dose of IVMP, on prednisone for a couple of weeks in 01/31Current disease therapies: Kesimpta startedSep 2021Most recent MRI brain: 04/03 vs 04/02, stable Moderate MRI typical of MSMost recent MRI cervical spine: 10/04, C3-4 lesionMost recent MRI thoracic spine: noneCSF: noneHistory summary:52 yo white female RH here for a follow up of her MS, she is on Kesimpta and tolerating well. She reports no new MS symptoms, but has headaches at least 3 times a week. She states she does not want to start medication for headaches at this time she has been able to manage. Last MRI of the brain 03/2022 and stable.Sometimes when sitting and she moves her head from side to side she can hear her neck pop, no electrical shocks. probably not related to her MS but she wanted to mention. PQ-Smudixisp-DLXUF [place] [address] Work Phone: History of Present illness Narrative 12-01-2021 Note Date & Type Note Facility 12-01-2021 History of Present illness Narrative [facility] NEUROIMMUNOLOGY EVALUATIONReferral source: Dr. Lino NEUROLOGIC DIAGNOSIS: RMSDISEASE SUMMARY/DIAGNOSTICS:Onset: 12/01Diagnosis of MS: 09/02Disease course at onset: RCurrent disease course: RPrevious disease therapies: not sure, maybe one dose of IVMP, on prednisone for a couple of weeks in 01/31Current disease therapies: Kesimpta startedSep 2021Most recent MRI brain: 01/31, I reviewed the images: Moderate MRI typical of MS-MRI brain demonstrated scattered ovoid T2 hyperintense lesions in the periventricular white matter, centrum semiovale, and in the posterior fossa (left MCP enhancing lesion). There were 1 gadolinium enhancing lesions.Most recent MRI cervical spine: noneMost recent MRI thoracic spine: noneCSF: noneHistory summary:12/01 had a metallic taste in her mouth constant, then developed constant vertigo, not positional, for weeks (could not work although she tried). Had some CORNEJO with the vomiting, had 2 migraines in her life. Also noticed diplopia while watching TV. Eventually sought care, had brain MRI as above. Saw Marciano, back in February 2021, thought she had MS, medications were discussed. Ocrevus was denied by insurance, JCV pos reportedly for Tysamargarethi, also denied Vumerity.On bad days she can have tension CORNEJO in the back of the head, like pressure, can be 8/10, NSAIDS help a bit, 3 days in a row last week but different than her prior episodes typical of migraines. Some residual dizziness but no vertigo. She is back to work.Interval Hx:She is feeling better, less CORNEJO and dizziness. [facility] [address] Work Phone: Chief complaint Narrative - Reported Note Date & Type Note Facility Chief complaint Narrative - Reported f/u for MSNeurologic Evaluation. BD-Saidodclz-HQFKE [place] [facility] Work Phone: Evaluation note Note Date & Type Note Facility documented in this encounter [facility] Work Phone: History of Present illness Narrative Note Date & Type Note Facility History of Present illness Narrative [facility] NEUROIMMUNOLOGY EVALUATIONReferral source: Dr. GormanPRINCIPAL NEUROLOGIC DIAGNOSIS: RMSDISEASE SUMMARY/DIAGNOSTICS:Onset: 12/01Diagnosis of MS: 09/02Disease course at onset: RCurrent disease course: RPrevious disease therapies: not sure, maybe one dose of IVMP, on prednisone for a couple of weeks in 01/31Current disease therapies: noneMost recent MRI brain: 01/31, I reviewed the images: Moderate MRI typical of MS-MRI brain demonstrated scattered ovoid T2 hyperintense lesions in the periventricular white matter, centrum semiovale, and in the posterior fossa (left MCP enhancing lesion). There were 1 gadolinium enhancing lesions.Most recent MRI cervical spine: noneMost recent MRI thoracic spine: noneCSF: noneHPI:Consultation on this 51 year old R-handed woman was requested regarding ?MS. The patient was accompanied by her partner. Previous imaging studies were reviewed and summarized.History summary:12/01 had a metallic taste in her mouth constant, then developed constant vertigo, not positional, for weeks (could not work although she tried). Had some CORNEJO with the vomiting, had 2 migraines in her life. Also noticed diplopia while watching TV. Eventually sought care, had brain MRI as above. Saw Marciano, back in January/February 2021, thought she had MS, medications were discussed. Ocrevus was denied by insurance, JCV pos reportedly for Tysabri, also denied Vumerity.On bad days she can have tension CORNEJO in the back of the head, like pressure, can be 8/10, NSAIDS help a bit, 3 days in a row last week but different than her prior episodes typical of migraines. Some residual dizziness but no vertigo. She is back to work.Current symptoms:-as above-trouble with memory-paresthesias in her whole left leg sometimes when turning her neck to the leftThe patient denies visual loss, diplopia, bulbar symptoms, weakness, spasticity, difficulty with gait, bladder and bowel symptoms, Lhermittes phenomenon. [facility] [address] Work Phone: History of Present illness Narrative Note Date & Type Note Facility History of Present illness Narrative [facility] NEUROIMMUNOLOGY EVALUATIONReferral source: Dr. GormanPRINCIPAL NEUROLOGIC DIAGNOSIS: RMSDISEASE SUMMARY/DIAGNOSTICS:Onset: 12/01Diagnosis of MS: 09/02Disease course at onset: RCurrent disease course: RPrevious disease therapies: not sure, maybe one dose of IVMP, on prednisone for a couple of weeks in 01/31Current disease therapies: Kesimpta startedJan 2021Most recent MRI brain: 04/03 vs 04/02, stable Moderate MRI typical of MSMost recent MRI cervical spine: 10/04, C3-4 lesionMost recent MRI thoracic spine: noneCSF: noneHistory summary:12/01 had a metallic taste in her mouth constant, then developed constant vertigo, not positional, for weeks (could not work although she tried). Had some CORNEJO with the vomiting, had 2 migraines in her life. Also noticed diplopia while watching TV. Eventually sought care, had brain MRI as above. Saw Marciano, back in February 2021, thought she had MS, medications were discussed. Ocrevus was denied by insurance, JCV pos reportedly for Tysalino, also denied Vumerity.Interval Hx:Feels like when she is watching TV or driving 'the eyes want to cross' for a few seconds, associated with some forehead pain, but w/o visual changes, such as diplopia, blurred vision. Reportedly eye visit was ok. Otherwise doing well. JR-Xqckxjvga-THWIJ [place] [facility] Work Phone: Summary Purpose Family History No Family History Records FoundUnknown Family Member Name Dates Details Family history of diabetes m ellitus: Sister(V18.0, Z83.3) Status:Active Unknown Family Member Name Dates Details Family history of diabetes m ellitus: Sister(V18.0, Z83.3) Status:Active Unknown Family Member Name Dates Details Family history of diabetes m ellitus: Sister(V18.0, Z83.3) Status:Active Unknown Family Member Name Dates Details Family history of diabetes m ellitus: Sister(V18.0, Z83.3) Status:Active Unknown Family Member Name Dates Details Family history of diabetes m ellitus: Sister(V18.0, Z83.3) Status:Active Unknown Family Member Name Dates Details Family history of diabetes m ellitus: Sister(V18.0, Z83.3) Status:Active Unknown Family Member Name Dates Details Family history of diabetes m ellitus: Sister(V18.0, Z83.3) Status:Active Unknown Family Member Name Dates Details Family history of diabetes m ellitus: Sister(V18.0, Z83.3) Status:Active Unknown Family Member Name Dates Details Family history of diabetes m ellitus: Sister(V18.0, Z83.3) Status:Active Unknown Family Member Name Dates Details Family history of diabetes m ellitus: Sister(V18.0, Z83.3) Status:Active Unknown Family Member Name Dates Details Family history of diabetes m ellitus: Sister(V18.0, Z83.3) Status:Active Unknown Family Member Name Dates Details Family history of diabetes m ellitus: Sister(V18.0, Z83.3) Status:Active Unknown Family Member Name Dates Details Family history of diabetes m ellitus: Sister(V18.0, Z83.3) Status:Active Unknown Family Member Name Dates Details Family history of diabetes m ellitus: Sister(V18.0, Z83.3) Status:Active Advance Directives No Advanced Directives Records FoundNo Advanced Directives Records FoundNo Advanced Directives Records FoundNo Advanced Directives Records FoundNo Advanced Directives Records Found Discharge Instructions * Attachments The following attachments cannot be sent through Care Everywhere. * Cervical Stretches ([facility]) ([place]ai[place]ese) * Cervical Pain (Tai[place]ese) documented in this encounter Assessments Diagnosis Strain of neck muscle, initial encounter- Primary Chief Complaint * ?MS * Neurologic Evaluation. * ?MS * Neurologic Evaluation. Additional Source Comments INFORMATION SOURCE (unrecogn ized section and content) DATE CREATED AUTHOR AUTHOR'S ORGANIZ ATION 10/05/2021 [facility] DATE CREATED AUTHOR AUTHOR'S ORGANIZ ATION 01/14/2023 [facility] DATE CREATED AUTHOR AUTHOR'S ORGANIZ ATION 07/09/2023 [facility] DATE CREATED AUTHOR AUTHOR'S ORGANIZ ATION 07/24/2023 [facility] Reason for Visit (unrecogniz ed section and content) Care Teams (unrecognized sec tion and content) FOR RECORDS PERTAINING TO PATIENTS WHO ARE OR HAVE BEEN ENROLLED IN A CHEMICAL DEPENDENCY/SUBSTANCEABUSE PROGRAM, SOME INFORMATION MAY BE OMITTED. This clinical summary was aggregated from multiple sources. Caution should be exercised in using it in the provision of clinical care. This summary normalizes information from multiple sources, and as a consequence, information in this document may materially change the coding, format and clinical context of patient data. In addition, data may be omitted in some cases. CLINICAL DECISIONS SHOULD BE BASED ON THE PRIMARY CLINICAL RECORDS. [facility] [employer] provides no warranty or guarantee of the accuracy or completeness of information in this document.
[2023-10-02 11:46] LABS: Absolute Lymphocyte Count 1.49 X10^3/uL (0.83-4.51); Absolute Neutrophil Count 4.2 X10^3/uL (2.0-7.7); Basophil# 0.08 X10^3/uL; Basophil% 1.2 % (0-1); Eosinophil# 0.31 X10^3/uL; Eosinophils% 4.7 % (0-5); Hematocrit 41.2 % (37-47); Hemoglobin 14.4 g/dL (12.0-15.0); Lymphocyte # 1.49 X10^3/ul (0.83-4.51); Lymphocyte % 22.6 % (19-41); Mean Corpuscular Hgb 29.9 pg (27.0-32.0); Mean Corpuscular Volume 85.5 fL (81-99); Mean Platelet Vol. 9.9 fl (6.2-12.0); Monocyte# 0.48 X10^3/uL; Monocyte% 7.3 % (0-10); NRBC Flagged by Analyzer 0 % (0-5); Neutrophil # 4.21 X10^3/uL (2.7-7.7); Platelet Count 361 K/mm3 (150-450); RBC Distribution Width CV 12.6 % (11.6-14.6); RBC Distribution Width SD 38.8 fl (35.1-43.9); Red Blood Count 4.82 M/mm3 (4.2-5.4); White Blood Count 6.6 K/mm3 (4.4-11.0)
[2023-10-02 12:31] LABS: Vitamin D,25 Hydroxy 24.4 ng/mL
[2023-10-02 12:40] LABS: ALB/GLOB Ratio 0.9 RATIO (0.9-2.4); AST(SGOT) 16 U/L (15-37); Alanine Aminotransfer ALT/SGPT 21 U/L (13-56); Albumin, Serum 3.4 g/dL (3.2-5.0); Alkaline Phosphatase 76 U/L (45-117); Anion Gap 4 (5-15); BUN 12 mg/dL (7-18); BUN/Creat Ratio 14.7 RATIO (10-20); Calcium,Total 8.7 mg/dL (8.5-10.1); Chloride 112 mmol/L (98-107); Cholesterol 176 mg/dL (200); Creatinine, Serum 0.82 mg/dL (0.55-1.02); EST Glomerular Filtration Rate 78 mL/min (>60); Est Glom Filt Rate - Afr Amer 94 mL/min (>60); Globulin 3.6 g/dL (2.2-4.2); Glucose 92 mg/dL (74-106); High Density Lipoprotein 45 mg/dL; Potassium 3.6 mmol/L (3.5-5.1); Sodium Level 141 mmol/L (136-145); Thyroid Stim Hormone (TSH) 1.52 uIU/mL (0.358-3.74); Triglycerides 153 mg/dL; Very Low Density Lipoprotein 31 mg/dL (5-40)
[2023-10-02 13:01] LABS: Hemoglobin A1c 5.2 % (3.8-5.6)
== END | disposition home or self-care (01) ==
LOC: LAB 10:59
PROVIDERS: Referring Provider Nurse Practitioner Family; Visit Provider Nurse Practitioner Family
DX: I10 Essential (primary) hypertension (principal); F33.0 Major depressive disorder, recurrent, mild; E66.9 Obesity, unspecified
CPT/HCPCS: 36415; 80053; 80061; 82306; 83036; 84443; 85025

== ENCOUNTER 2023-10-15 07:54 | Day surgery (SDC) | payer BC, SELFPAY ==
--- OUTSIDE RECORDS SUMMARY | 2023-10-15 07:59 | XMS RPT_ITS | CCD ---
Author Name Unknown Address [address] [place] [address] Organization [facility] Care Team Providers Care [facility] Service Specialist Name Role Phone Becky Low Primary Care Provider Unknown, Unknown Unavailable Unavailable Unavailable Unavailable Ms. Mani Ponce Attending Unav lesley Ponce, Ms. Mani [place] Referring Unav ailable UNKNOWN, UNKNOWN Primary Care Unavailable Ms. Mani Ponce Attending Unav ailable Fanta, Dr. Oglesby Referring Unavailabl e UNKNOWN, UNKNOWN [place] [id number], Number Primary Care Provide r Unavailable MANI PONCE Attending Unavailable Allergies Allergy Classification Reported Allergen(s) Allergy Type Date of Onset Reaction(s) Facility (2 sources) Penicillins; Translations: [PENICILLINS] Propensity to adverse reactions to drug 7 [facility] (15 sources) Penicillins; Translations: [Penicillins] Allergy to drug (finding) SZ-Fgyirkylz-K [facility] [address] Work Phone: (1 source) Penicillins Drug Intolerance 7 Unknown [facility] (1 source) ALLERGIES NOT ON FILE; Translations: [ALLERGIES NOT ON FILE] Propensity to adverse reactions (disorder) [facility] Medications Current Medications Medication Drug Class(es) Dates Sig (Normalized) Sig (Original) 0.4 ml ofatumumab 50 mg/ml pen injector (15 sources) [id number] Cytolytic Antibody ofatumumab (Kesimpta Pen) 20 mg/0.4 [...] index (BMI) [Ratio] 37.43 kg/m2 Mani Ponce [employer] Work Phone: [facility] 07-19-2023 14:40-0500 Body weight 108.41 kg Mani Ponce [employer] Work Phone: [facility] 07-19-2023 14:40-0500 Diastolic blood pressure 77 mm[Hg] Mani Ponce [employer] Work Phone: [facility] 07-19-2023 14:40-0500 Heart rate 67 /min Mani Ponce [employer] Work Phone: [facility] 07-19-2023 14:40-0500 Respiratory rate 18 /min Mani Ponce [employer] Work Phone: [facility] 07-19-2023 14:40-0500 Systolic blood pressure 120 mm[Hg] Mani Ponce [employer] Work Phone: [facility] 01-12-2023 14:05-0400 Body height 170.18 cm Unknown Unknown MA-Vjsfdunop-BRT [facility] Work Phone: 01-12-2023 14:05-0400 Body mass index (BMI) [Ratio] 36.96 kg/m2 Unknown Unknown [facility] [facility] Work Phone: 01-12-2023 14:05-0400 Body surface area Derived from formula 2.17 m2 [facility] Work Phone: 01-12-2023 14:05-0400 Body weight 107.05 kg Unknown Unknown JK-Xfpttmtut-QTI [facility] Work Phone: 01-12-2023 14:05-0400 Diastolic blood pressure 80 mm[Hg] Unknown Unknown KW-Solsdeino-HNUIH [facility] Work Phone: 01-12-2023 14:05-0400 Heart rate 69 /min Unknown Unknown JJ-Srhzsxtur-END [facility] Work Phone: 01-12-2023 14:05-0400 Respiratory rate 18 /min Unknown Unknown EP-Gehdcnftk-QN [facility] Work Phone: 01-12-2023 14:05-0400 Systolic blood pressure 129 mm[Hg] Unknown Unknown [facility] Work Phone: 01-12-2023 14:05-0400 1 1 Unknown Unknown LU-Qttkkwkjx-HCC [facility] Work Phone: Encounters Encounter Date Encounter Type Care Provider Facility Start: 07-19-2023 End: 07-20-2023 ambulatory [facility] Start: 07-19-2023 End: 07-19-2023 ambulatory MANI [facility] Start: 07-19-2023 End: 07-19-2023 Office outpatient visit 40 minutes Mani Ponce [employer] Work Phone: [facility] Procedures Date Procedure Procedure Detail Performing Clinician Start: 07-19-2023 CBC W Auto Different ial panel - Blood MANI PONCE Start: 07-19-2023 Hepatic function 200 0 panel - Serum or Plasma MANI PONCE Start: 12-15-2022 Microscopic observat ion [Identifier] in Cervix by Cyto stain Mani Ponce [employer] Work Phone: Start: 08-05-2019 Radiography of cervi michelle spine Cassandra Ventura Work Phone: Plan of Treatment Date Care Activity Detail Author Start: 12-15-2025 Screening for malignant neoplasm of cervix [facility] Start: 01-17-2024 End: 01-17-2024 Patient encounter procedure 01/17/2024 2:45 PM EDT Office Visit [facility] [address] [place] [id number] Mani Ponce, [employer] [address] [place] Department [place] [address] [facility] Start: 07-22-2023 FUV, Provider: Mani Ponce, Status: Pen, Time: 2:30 PM FUV, Provider: Mani Ponce, Status: Pen, Time: 2:30 PM FZ-Zlknemkdn-NYOWU [facility] Work Phone: Start: 07-19-2023 End: 07-19-2024 CBC W Auto Differential panel - Blood CBC and Auto Differential Lab Routine Multiple sclerosis (CMS/HCC) Expected: 07/19/2023 (Approximate), Expires: 07/19/2024 [facility] Service Area Work Phone: Payers Date Payer Category Payer Unknown 2021 Unknown [id number] 2019 Unknown [employer] PPO POS xxxxxxxxxxxx 2019-Present xxxxxxxxxxxx [id number] 1970 Unknown [id number] 1970 Unknown [id number] 1970 Unknown [id number] 5 1970 Unknown [id number] 1970 Unknown [id number] Social History Date Type Detail Facility Start: 08-05-2019 End: 07-19-2023 Tobacco smoking status NHIS Never smoker [facility] Start: 08-05-2019 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 intake 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 Left palmar grasp present. Coordination Elqoun-be-dnzz, rapid alternating movements and tmcd-ga-suhx normal bilaterally without dysmetria. Gait Timed get [...] mo. documented in this encounter [facility] Work Phone: History of Present illness Narrative 12-01-2022 Note Date & Type Note Facility 12-01-2022 History of Present illness Narrative [facility] NEUROIMMUNOLOGY EVALUATIONReferral source: Dr. Lino NEUROLOGIC DIAGNOSIS: [...] her MS but she wanted to mention. WR-Lhqjgnpag-ZCPPG [facility] Work Phone: History of Present illness Narrative 12-01-2021 Note Date & Type Note Facility 12-01-2021 History of Present illness Narrative [facility] NEUROIMMUNOLOGY EVALUATIONReferral source: Dr. Lino NEUROLOGIC DIAGNOSIS: [...] is feeling better, less CORNEJO and dizziness. [facility] [address] Work Phone: Chief complaint Narrative - Reported Note Date & Type Note Facility Chief complaint Narrative - Reported f/u for MSNeurologic Evaluation. AP-Yuihlzgoa-TLSEQ [facility] Work Phone: Evaluation note Note Date & Type Note Facility documented in this encounter [facility] Work Phone: History of Present illness Narrative Note Date & Type Note Facility History of Present illness Narrative [facility] NEUROIMMUNOLOGY EVALUATIONReferral source: Dr. GormanPRINCIPAL NEUROLOGIC DIAGNOSIS: [...] gait, bladder and bowel symptoms, Lhermittes phenomenon. [facility]iqc[facility] [address] Work Phone: History of Present illness Narrative Note Date & Type Note Facility History of Present illness Narrative [facility] NEUROIMMUNOLOGY EVALUATIONReferral source: Dr. GormanPRINCIPAL NEUROLOGIC DIAGNOSIS: [...] eye visit was ok. Otherwise doing well. NR-Ealafrlta-MATBY [facility] Work Phone: Summary Purpose Family [...] through Care Everywhere. * Cervical Stretches ([facility]) (Scottish) * Cervical Pain (Scottish) documented in this encounter Assessments Diagnosis Strain of neck muscle, initial encounter- Primary Chief Complaint * ?MS * Neurologic Evaluation. * ?MS * Neurologic Evaluation. Additional Source Comments INFORMATION SOURCE (unrecogn ized section and content) DATE CREATED AUTHOR AUTHOR'S ORGANIZ ATION 10/05/2021 [facility] DATE CREATED AUTHOR AUTHOR'S ORGANIZ ATION 01/14/2023 [employer] DATE CREATED AUTHOR AUTHOR'S ORGANIZ ATION 07/09/2023 [facility] DATE CREATED AUTHOR AUTHOR'S ORGANIZ ATION 07/24/2023 [facility] Reason for Visit (unrecogniz ed section [...] BE BASED ON THE PRIMARY CLINICAL RECORDS. [facility] [employer] provides no warranty or guarantee of the accuracy or completeness of information in this document.
[2023-10-15] MEDS: Lactated Ringers 1,000 ML 15 ML IV (08:15)
[2023-10-15 08:22] VITALS: BP 128/72; PULSE 72; RESP 16; TEMP 36.8; O2SAT 96; BMI 37.1
--- NOTE | 2023-10-15 08:54 | HP.PCM_ITS ---
HPI - General HPI Narrative GEORGIE ADKINS, is a 53 F who presents for screening colonoscopy. She has never had a colonoscopy in the past. She denies any abdominal pain or blood in the stool. She is on no blood thinners. [facility] Medical History (Updated 10/14/23 @ 08:31 by Philly Beltran) Abnormal Pap smear of cervix Anemia Anxiety Depression Depression, major, recurrent, mild Essential (primary) hypertension Migraines Multiple sclerosis Non-smoker Post-menopausal Vitamin D deficiency Wears contact lenses Wears glasses Home Medications venlafaxine 75 mg capsule,extended release 24 hr (Effexor XR) 75 mg PO QDAY 03/25/18 [History Last Taken 10/14/23] metoprolol succinate 50 mg tablet,extended release 24 hr 50 mg PO DAILY 01/13/21 [History Last Taken 10/14/23] ofatumumab 20 mg/0.4 mL subcutaneous pen injector (Kesimpta Pen) 20 mg subcut QMONTH 09/21/23 [History Last Taken 10/08/23] cholecalciferol (vitamin D3) 25 mcg (1,000 unit) capsule (Vitamin D3) 25 mcg PO DAILY 10/14/23 [History Last Taken 10/14/23] Allergy/AdvReac Type Severity Reaction Status Date / Time Penicillins AdvReac Mild Rash Verified 10/15/23 08:13 Family History Mother Hypertension Kidney disease Sister Diabetes Surgical History H/O tubal ligation (~1997) H/O: hysterectomy History of [facility] Status post colposcopy Social History adopted: No household members: family housing: house number of children: 3 current occupational status: employed current occupation: [employer] current occupational exposures/hazards: No pets and animals: No history of recent travel: No Smoking Status: Never smoker second hand exposure: No alcohol intake: current alcohol intake frequency: holidays/special occasions only substance use type: does not use what type of physical activity do you participate in: none seatbelt use: always do you feel safe at home: Yes additional social history: Boyfriend-Jm Past Medical/Surgical History Planned Operation Planned Operative Procedure/s: COLONOSCOPY-OA S.O.S: No Previous Hospitalizations/Surgeries HX Hospitalizations: No HX of Surgeries: tubal ligation Any Problems With Anesthesia: No You/Your Family Experience Fever (Hyperthermia) With Anes: No Cholinesterase deficiency: No Cardiovascular Hx Chest Pain within Last 2 months: No Hx of Irregular Heartbeat and/or Afib: No Hx Heart Attack: No Hx Congestive Heart Failure: No Hx Rheumatic Fever: No Hx Hypertension: No Hx Internal Defibrillator: No Hx Pacemaker: No Hx Cardiac Catheterization: No Hx Cardiac Surgery/Stents/Etc.: No Hx Stress Test: No Hx Pain in Legs when Walking/Leg Cramps: No Respiratory Chronic Cough: No HX of Shortness of Breath: No Hoarseness: No Hx Chronic Obstructive Pulmonary Disease (COPD): No Hx Asthma: No Hx Emphysema: No Hx Sleep Apnea: No CPAP: No Hx Respiratory Tract Infection/Cold (presently): No Do You Snore Loudly (louder than talking or can be heard): No Do You Often Feel Tired/ Fatigued/ Sleepy Dring Daytime?: No Has Anyone Observed You Stop Breathing During Sleep?: No Result (for STOP score): Negative Hx Smoking: No Smoking Status: Never smoker Gastrointestinal Hx Gastrointestinal Disorders: No Hx Gastrointestinal Bleed: No Hx Ulcer: No Hx Hiatal Hernia: No Difficulty Chewing/Swallowing: No Special diet followed at home: No Hx Unplanned Weight Loss of 20#: No HX Unplanned Weight Gain of 20#: No Neurological Hx Seizures: No HX Syncope/Blackout Spells/Unconsciousness: No Hx Transient Ischemic Attacks (TIA): No Hx Multiple Sclerosis: No Hx Parkinson's Disease: No Hx Head/Neck Injury: No Hx Headaches: No Hx Back Injury/Pain: No Recent Onset of Speech Difficulty: No Restless Legs: No Does patient have nerve stimulator: No Blood Disorder Hx Leukemia: No Bleeding Tendencies: No Hx Deep Vein Thrombosis: No Hx High Cholesterol: No Blood Transmitted Disease: No Hx Hepatitis: No Hx Cirrhosis: No Hx Anemia: Yes (in the past) Hx Blood Disorders: No Reproduction Is Patient Lactating: No Hx Hysterectomy: No Hx Tubal Ligation: Yes Are You Post Menopause: No Genitourinary Hx Renal Disease: No Musculoskeletal Hx Arthritis: No Hx Rheumatoid Arthritis: No Hx Gout: No Recent Onset of an Orthopedic Problem: No Endocrine Hx Diabetes: No Thyroid Disease: No Hx Steroid Therapy: No Psycho/Social Hx Substance Use: No Hx Alcohol Use: No Hx Anxiety: Yes (on med) Hx Depression: Yes (on med) Mental Illness: No Hx Dementia: No Miscellaneous Hx Cancer: No Recent Exposure to Contagious Disease: No Hx of C-Diff: No Any Loose Teeth: No Allergies Penicillins Adverse Reaction (Mild, Verified 10/15/23 08:13) Rash Discharge Is Pt Admitted From a Penitentiary, or a Correction: No After D/C, Where Do you Plan to Go: Return Home Vital Signs Vital Signs Vital Signs: 10/15/23 08:22 10/15/23 08:22 Temperature 98.3 F Temperature Source Temporal Pulse Rate 72 Respiratory Rate 16 Respiratory Pattern Normal Blood Pressure 128/72 H Blood Pressure Mean 90 Blood Pressure Source Monitor Blood Pressure Position Semi-Fowlers Blood Pressure Location Left Arm Pulse Ox 96 Oxygen Delivery Method Room Air Weight Weight: 237 lb 7.005 oz Body Mass Index (BMI) 37.1 Physical Exam Const alert and oriented x3 HEENT normocephalic Eyes PERRL Resp normal respiratory effort and normal air movement Cardio regular rate and regular rhythm GI soft to palpation, non-tender and non-distended Extremity normal to inspection Assessment & Plan Assessment/Plan (1) Encounter for screening for malignant neoplasm of colon: PLAN: I explained endoscopy in detail to the patient. I explained the risks including but not limited to stroke or heart attack with anesthesia, perforation of the GI tract, bleeding, infection. I explained that any of these could necessitate further emergency surgery. The patient understands and all questions were answered sufficiently. The patient wishes to proceed with procedure. Carter Moreau MD Pager: [facility] [address] [place] [address], [address] [place] [address] Office: Surgery Risks - Colonoscopy Risks Include but are not Limited To: Risks include but are not limited to: Bleeding, perforation requiring further surgery, inability to complete colonoscopy requiring barium enema.
--- NOTE | 2023-10-15 09:23 | OP.CCLET_ITS ---
10/15/2023 Jessica Whitley [facility] Re : Colonoscopy procedure for Marcia Ramos Dear [facility] This procedure was performed on Sunday, October 15, 2023. My impressions and recommendations are as follows: Impressions : - The entire examined colon is normal on direct and retroflexion views. - No specimens collected. Recommendations : - Discharge patient to home. - Resume previous diet. - Continue present medications. - Repeat colonoscopy in 10 years for screening purposes. My findings are described in the full procedure note, which is enclosed. If I can be of further assistance, please feel free to contact me at Doctor phone number(s): , Work: . Sincerely, Carter Moreau MD 10/15/2023 9:22:53 AM This report has been signed electronically.
--- NOTE | 2023-10-15 09:23 | OP.COLON_ITS ---
Patient Name: Marcia Ramos Procedure Date: 10/15/2023 8:57 AM Date of : 1970 Age: 53 Procedure: Colonoscopy Indications: Screening for colorectal malignant neoplasm Providers: Carter Moreau MD Referring MD: Jessica Whitley [facility] Medicines: Propofol per Anesthesia Patient Profile: This is a 53 year old female. Refer to note in patient chart for documentation of history and physical. Last Colonoscopy: none. The patient's first colonoscopy is today. Complications: No immediate complications. Procedure: Pre-Anesthesia Assessment: - Prior to the procedure, a History and Physical was performed, and patient medications and allergies were reviewed. The patient's tolerance of previous anesthesia was also reviewed. The risks and benefits of the procedure and the sedation options and risks were discussed with the patient. All questions were answered, and informed consent was obtained. Prior Anticoagulants: The patient has taken no anticoagulant or antiplatelet agents. After reviewing the risks and benefits, the patient was deemed in satisfactory condition to undergo the procedure. After I obtained informed consent, the scope was passed under direct vision. Throughout the procedure, the patient's blood pressure, pulse, and oxygen saturations were monitored continuously. The Colonoscope was introduced through the anus and advanced to the cecum, identified by appendiceal orifice and ileocecal valve. The colonoscopy was performed without difficulty. The patient tolerated the procedure well. The quality of the bowel preparation was good. The ileocecal valve, appendiceal orifice, and rectum were photographed. Scope In: 9:07:13 AM Scope Withdrawal Time 0 hours 6 minutes 0 seconds Scope Out: 9:17:22 AM Total Procedure Duration Time 0 hours 10 minutes 9 seconds Findings: The entire examined colon appeared normal on direct and retroflexion views. Impression: - The entire examined colon is normal on direct and retroflexion views. - No specimens collected. Recommendation: - Discharge patient to home. - Resume previous diet. - Continue present medications. - Repeat colonoscopy in 10 years for screening purposes. Procedure Code(s): --- Professional --- 07472, Colonoscopy, flexible; diagnostic, including collection of specimen(s) by brushing or washing, when performed (separate procedure) Diagnosis Code(s): --- Professional --- Z12.11, Encounter for screening for malignant neoplasm of colon CPT copyright 2022 [employer]. All rights reserved. The codes documented in this report are preliminary and upon patrol police lieutenant review may be revised to meet current compliance requirements. Carter Moreau MD 10/15/2023 9:22:53 AM This report has been signed electronically. Number of Addenda: 0 Note Initiated On: 10/15/2023 8:57 AM
[2023-10-15 09:24] VITALS: BP 128/72; BP 82/69; PULSE 87; RESP 16; TEMP 36.4; O2SAT 98
[2023-10-15 09:25] VITALS: BP 109/78; BP 128/72; PULSE 72; RESP 16; O2SAT 95
[2023-10-15 09:30] VITALS: BP 126/79; BP 128/72; PULSE 71; RESP 16; O2SAT 96
[2023-10-15 09:36] VITALS: BP 110/80; BP 128/72; PULSE 67; RESP 16; TEMP 36.3; O2SAT 97
[2023-10-15 09:45] VITALS: BP 128/72
== END 2023-10-15 10:22 | disposition home or self-care (01) ==
LOC: EN 07:54 → AC 07:55
PROVIDERS: Visit Provider Surgery
PROC: 0DJD8ZZ Inspection of Lower Intestinal Tract, Via Natural or Artificial Opening Endoscopic (ICD-10-PCS; CPT 45378; principal; 2023-10-15 08:55)
DX: Z12.11 Encounter for screening for malignant neoplasm of colon (principal); G35 Multiple sclerosis; I10 Essential (primary) hypertension; F32.A Depression, unspecified; Z98.51 Tubal ligation status; Z90.710 Acquired absence of both cervix and uterus
CPT/HCPCS: 45378; J7120; J2405

== ENCOUNTER 2024-01-07 18:00 | Emergency (ER) | payer BC, SELFPAY ==
[2024-01-07 18:00] VITALS: BP 126/93; PULSE 70; RESP 14; TEMP 35.8; O2SAT 97
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
--- NOTE | 2024-01-07 18:14 | RAD_ITS ---
INDICATION: pain EXAMINATION/TECHNIQUE: X-RAY - LEFT XR Wrist Min 3 Views COMPARISON: None. FINDINGS: No acute fracture or malalignment. No blastic or lytic lesions. Minimal degenerative changes of the radiocarpal and first carpometacarpal joints. The soft tissues are unremarkable. RAD/Wrist min 3 Views IMPRESSION: No acute radiographic abnormalities. Electronically Signed: Joe Siegel MD at 20:16 EDT ,
--- NOTE | 2024-01-07 18:14 | RAD_ITS ---
INDICATION: left hand pain EXAMINATION/TECHNIQUE: X-RAY - LEFT XR Hand Min 3 Views COMPARISON: None. FINDINGS: No acute fracture or malalignment. No blastic or lytic lesions. Minimal degenerative changes of the interphalangeal, radiocarpal and first carpometacarpal joints. The soft tissues are unremarkable. RAD/Hand Min 3 Views IMPRESSION: No acute radiographic abnormalities. Electronically Signed: Joe Siegel MD at 20:17 EDT ,
--- NOTE | 2024-01-07 18:14 | RAD_ITS ---
INDICATION: chest pain EXAMINATION/TECHNIQUE: X-RAY - XR Chest 2 Views COMPARISON: None. FINDINGS: The lungs are clear. Tortuous and calcified thoracic aorta. The heart is not enlarged. No pleural effusion or pneumothorax. Degenerative changes of the thoracic spine. RAD/Chest PA and Lateral IMPRESSION: No acute radiographic abnormalities. Electronically Signed: Joe Siegel MD at 20:17 EDT ,
[2024-01-07 20:00] VITALS: BP 125/75; PULSE 73; RESP 16; O2SAT 98
[2024-01-07 20:37] VITALS: BP 126/81; PULSE 71; RESP 16; O2SAT 98
[2024-01-07 21:25] VITALS: BP 135/71; PULSE 68; RESP 15; TEMP 36.1; O2SAT 98
== END 2024-01-07 21:26 | disposition home or self-care (01) ==
PROVIDERS: Emergency Provider Emergency Medicine; Visit Provider Emergency Medicine
DX: S20.219A Contusion of unspecified front wall of thorax, initial encounter (principal); F41.9 Anxiety disorder, unspecified; F32.A Depression, unspecified; I10 Essential (primary) hypertension; Z79.899 Other long term (current) drug therapy; Z98.51 Tubal ligation status; Z90.710 Acquired absence of both cervix and uterus; V89.0XXA Person injured in unspecified motor-vehicle accident, nontraffic, initial encounter
CPT/HCPCS: 71046; 73110; 73130; 99282

== ENCOUNTER 2024-01-25 11:30 | Emergency (ER) | payer BC, SELFPAY ==
[2024-01-25 11:31] VITALS: BP 128/81; PULSE 79; RESP 16; TEMP 36.6; O2SAT 97; BMI 38.2
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
== END 2024-01-25 14:29 | disposition home or self-care (01) ==
LOC: ED 14:23
PROVIDERS: Emergency Provider Emergency Medicine; Visit Provider Emergency Medicine
DX: S63.92XD Sprain of unspecified part of left wrist and hand, subsequent encounter (principal); G35 Multiple sclerosis; V89.2XXD Person injured in unspecified motor-vehicle accident, traffic, subsequent encounter; F32.A Depression, unspecified; I10 Essential (primary) hypertension
CPT/HCPCS: 73110; 99282

== ENCOUNTER → 2024-10-09 | Outpatient (CLI) | payer BC, SELFPAY ==
[2024-10-09 08:42] LABS: Absolute Lymphocyte Count 1.43 X10^3/uL (0.83-4.51); Absolute Neutrophil Count 4.3 X10^3/uL (2.0-7.7); Basophil# 0.08 X10^3/uL; Basophil% 1.2 % (0-1); Eosinophil# 0.32 X10^3/uL; Eosinophils% 4.7 % (0-5); Hematocrit 41.9 % (37-47); Hemoglobin 14.2 g/dL (12.0-15.0); Lymphocyte # 1.43 X10^3/ul (0.83-4.51); Lymphocyte % 21.2 % (19-41); Mean Corp Hgb Conc 33.9 g/dL (32-36); Mean Corpuscular Hgb 29.2 pg (27.0-32.0); Mean Platelet Vol. 9.9 fl (6.2-12.0); Monocyte# 0.63 X10^3/uL; Monocyte% 9.3 % (0-10); NRBC Flagged by Analyzer 0 % (0-5); Neutrophil # 4.27 X10^3/uL (2.7-7.7); Neutrophil % 63.3 % (47-70); Platelet Count 351 K/mm3 (150-450); RBC Distribution Width CV 12.8 % (11.6-14.6); RBC Distribution Width SD 39.8 fl (35.1-43.9); Red Blood Count 4.87 M/mm3 (4.2-5.4); White Blood Count 6.8 K/mm3 (4.4-11.0)
[2024-10-09 09:09] LABS: Vitamin D,25 Hydroxy 35.4 ng/mL
[2024-10-09 09:13] LABS: Hemoglobin A1c 5.5 % (3.8-5.6)
[2024-10-09 09:19] LABS: AST(SGOT) 15 U/L (15-37); Alanine Aminotransfer ALT/SGPT 20 U/L (13-56); Albumin, Serum 3.4 g/dL (3.2-5.0); Alkaline Phosphatase 77 U/L (45-117); Anion Gap 5 (5-15); BUN 15 mg/dL (7-18); BUN/Creat Ratio 18.2 RATIO (10-20); Calcium,Total 9.2 mg/dL (8.5-10.1); Chloride 112 mmol/L (98-107); Cholesterol 179 mg/dL (200); Creatinine, Serum 0.83 mg/dL (0.55-1.02); EST Glomerular Filtration Rate 77 mL/min (>60); Est Glom Filt Rate - Afr Amer 93 mL/min (>60); Globulin 3.5 g/dL (2.2-4.2); Glucose 102 mg/dL (74-106); High Density Lipoprotein 50 mg/dL; Potassium 3.8 mmol/L (3.5-5.1); Protein, Total 6.9 g/dL (6.4-8.2); Sodium Level 141 mmol/L (136-145); Triglycerides 108 mg/dL; Very Low Density Lipoprotein 22 mg/dL (5-40)
== END | disposition home or self-care (01) ==
LOC: LAB 07:42
PROVIDERS: PCP Nurse Practitioner Family; Referring Provider Nurse Practitioner Family; Visit Provider Nurse Practitioner Family
DX: I10 Essential (primary) hypertension (principal); E55.9 Vitamin D deficiency, unspecified; E66.9 Obesity, unspecified
CPT/HCPCS: 36415; 80053; 80061; 82306; 83036; 84443; 85025

== ENCOUNTER → 2024-10-09 | Outpatient (CLI) | payer BC, SELFPAY ==
--- NOTE | 2024-10-09 07:11 | BI_ITS ---
MAMMOGRAPHY - BILATERAL SCREENING REASON FOR EXAM: Female, 54 years old. Routine annual screening examination. PERTINENT HISTORY: Non-contributory. TECHNIQUE: Digital bilateral breast kwame (3D mammographic acquisition) in the CC and MLO projections. 2-D mediolateral oblique (MLO) and craniocaudad (CC) views of both breasts were obtained. CAD: Full Field Digital Mammography with Computer Added Detection was performed. COMPARISON: Comparison is made with prior study June 18, 2023 and May 04, 2022. FINDINGS: Breast Composition: There are scattered areas of fibroglandular density. There are no dominant masses or suspicious calcifications. No other significant abnormalities are identified. There has been no significant change since the prior study. BI/SCRN MAMM (CAD)W/KWAME BILAT IMPRESSION: Stable bilateral screening mammogram. Yearly follow-up mammogram recommended. (A) ASSESSMENT CATEGORY: BIRADS Category 1: Negative. A letter regarding these results will be sent to the patient by the facility within 30 days. Approximately 10% of breast cancers are not detected by mammography. A normal mammogram should not delay biopsy of a clinically suspicious abnormality. [id number] Electronically Signed: Noe Maynard MD at 8:54 EST ,
== END | disposition home or self-care (01) ==
LOC: OPBI 07:10
PROVIDERS: PCP Nurse Practitioner Family; Referring Provider Nurse Practitioner Family; Visit Provider Nurse Practitioner Family
DX: Z12.31 Encounter for screening mammogram for malignant neoplasm of breast (principal)
CPT/HCPCS: 77063; 77067